=== PATIENT | female | born 1980 | race Caucasian/White ===

== ENCOUNTER 2017-03-10 11:13 | Emergency (ER) | payer OTHER ==
[~2017-03-10 11:13] MED LIST: DIVA500T2 PO; DIVA500T4 PO; HYDR-79 PO; HYDR1TAB12 PO; ONDA4TAB10 PO; OXYC-323 PO; SUMA100T3 PO
[2017-03-10 11:20] VITALS: BP 177/100
[2017-03-10] MEDS ORDERED: DEXAMETHASONE SOD PHOS 10 MG/ML VIAL IM ONE (12:30)
--- NOTE | 2017-03-10 13:15 | ED.ADGEN ---
Past History Past Medical History: Hypertension Past Surgical History: , Gastric Bypass, Tonsillectomy, Other Smoking: Cigarettes Alcohol Use: Heavy Drug Use: None Adult General HPI HPI Patient is a 37-year-old female presents emergency department complaining of bilateral low back pain. She denies any injury or trauma to the area. She denies any bowel or bladder dysfunction or saddle anesthesia. Patient has been using heat and ice for the pain but no other interventions. She has not seen her primary care physician. Review of Systems Review of Systems Constitutional: Denies fever or chills [] Eyes: Denies change in visual acuity, redness, or eye pain [] HENT: Denies nasal congestion or sore throat [] Respiratory: Denies cough or shortness of breath [] Cardiovascular: No additional information not addressed in HPI [] GI: Denies abdominal pain, nausea, vomiting, bloody stools or diarrhea [] : Denies dysuria or hematuria [] Musculoskeletal: Denies back pain or joint pain [] Integument: Denies rash or skin lesions [] Neurologic: Denies headache, focal weakness or sensory changes [] Endocrine: Denies polyuria or polydipsia [] Current Medications Current Medications Current Medications Medications (Trade) Dose Ordered Sig/Jocelyne Start Time Stop Time Status Last Admin Dose Admin Dexamethasone Sodium Phosphate (Decadron) 10 mg 1X ONCE 03/10/17 12:30 03/10/17 12:37 DC 03/10/17 12:30 10 MG Allergies Allergies Allergies Coded Allergies Type Severity Reaction Last Updated Verified No Known Drug Allergies 11/29/15 No Physical Exam Physical Exam Constitutional: Well developed, well nourished, no acute distress, non-toxic appearance. [] HENT: Normocephalic, atraumatic, bilateral external ears normal, oropharynx moist, no oral exudates, nose normal. [] Eyes: PERRLA, EOMI, conjunctiva normal, no discharge. [] Neck: Normal range of motion, no tenderness, supple, no stridor. [] Cardiovascular:Heart rate regular rhythm, no murmur [] Lungs & Thorax: Bilateral breath sounds clear to auscultation [] Abdomen: Bowel sounds normal, soft, no tenderness, no masses, no pulsatile masses. [] Skin: Warm, dry, no erythema, no rash. [] Back: Bilateral paralumbar tenderness palpation Extremities: No tenderness, no cyanosis, no clubbing, ROM intact, no edema. [] Neurologic: Alert and oriented X 3, normal motor function, normal sensory function, no focal deficits noted. [] Psychologic: Affect normal, judgement normal, mood normal. [] Current Patient Data Vital Signs Vital Signs Date Time Temp Pulse Resp B/P Pulse Ox O2 Delivery O2 Flow Rate FiO2 03/10/17 11:20 98.1 80 18 98 Room Air EKG EKG [] Radiology/Procedures Radiology/Procedures [] Course & Med Decision Making Course & Med Decision Making Pertinent Labs and Imaging studies reviewed. (See chart for details) Patient was instructed to use for naproxen as directed. We did give her dose of Decadron here. She will follow with her doctor next week and return emergency department sooner she develops new or worsening symptoms. [] Final Impression Final Impression Low back pain [] Problems: Dragon Disclaimer Dragon Disclaimer This electronic medical record was generated, in whole or in part, using a voice recognition dictation system. AMINTA AMARO MD Mar 10, 2017 13:15
== END 2017-03-10 12:52 | disposition home or self-care (01) ==
LOC: ER 11:13
DX: M54.5 Low back pain (principal); I10 Essential (primary) hypertension; F17.210 Nicotine dependence, cigarettes, uncomplicated; F10.10 Alcohol abuse, uncomplicated
CPT/HCPCS: 96372; 99283; J1100

== ENCOUNTER 2017-05-09 18:02 | Emergency (ER) | payer OTHER ==
[~2017-05-09] VITALS: Ht 160 cm; Wt 77.1 kg
[2017-05-09 18:13] VITALS: BP 149/103
--- NOTE | 2017-05-09 19:19 | PHYS DOC ---
General Chief Complaint: TOE PROBLEM Stated Complaint: TOE PROBLEM Time Seen by MD: 18:35 Source: patient Exam Limitations: no limitations Problems: History of Present Illness Initial Comments Patient is a 37-year-old female who comes to the ED complaining of left small toe pain. Patient states that yesterday she was walking at home and tripped over her son' s Nerf gun she then accidentally kicked a piece of furniture with her left small toe causing severe pain. She's had pain and swelling since that time and came for evaluation to see if she had dislocated the digit. She denies numbness tingling weakness or radiating symptoms. [id number] medications helps some however patient became concerned with the bruising and swelling today. 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 Onset: yesterday Severity: moderate Pain/Injury Location: left 5th toe Method of Injury: direct blow Modifying Factors: worse with jarring, worse with movement, improves with pain medication, improves with rest Allergies: Coded Allergies: No Known Drug Allergies (Unverified , 11/29/15) Past Medical History Medical History: hypertension Surgical History: appendectomy (), gastric bypass Social History Smoker: cigarettes Alcohol: none Drugs: none Review of Systems Constitutional: denies chills, denies fever Respiratory: denies cough, denies shortness of breath Cardiovascular: denies chest pain, denies palpitations Gastrointestinal: denies diarrhea, denies nausea, denies vomiting Musculoskeletal: see HPI Skin: see HPI Psychiatric/Neurological: see HPI Physical Exam General Appearance: WD/WN, no apparent distress Neck: non-tender, supple Cardiovascular/Respiratory: normal peripheral pulses, no respiratory distress Back: no CVA tenderness, no vertebral tenderness Feet: right foot non-tender, right foot normal inspection, right foot normal range of motion, right foot no evidence of injury, left foot other (fifth phalanx with swelling and ecchymosis approximately no palpable bony deformity or dislocation. Ligaments and tendons appear to be intact the extremity is neurovascularly intact there is no nailbed involvement.) Neurologic/Tendon: normal sensation, normal motor functions, normal tendon functions, responds to pain, no evidence tendon injury Psychiatric: alert, oriented x 3 Skin: warm/dry (left foot bruising as described above.) Orders, Labs, Meds Toes left: Acute fracture of the proximal fifth phalanx noted Postop shoe with some relief neurovascularly intact after placed in the shoe. Patient was encouraged to stop smoking. Departure Time of Disposition: 19:17 Disposition: 01 HOME, SELF-CARE Diagnosis: left 5th toe fracture Condition: GOOD Patient Instructions: Marc Taping of ToesKEHINDE - Routine Care for Injuries, [id number], Toe Fracture, [id number] Additional Instructions: KEHINDE see handout. Wear the postop shoe until cleared by your doctor. [id number] ibuprofen for baseline pain control. Prescription: [place] 5 mg quantity 15 Take medication with food to avoid nausea and vomiting. Follow-up at [place] this week for recheck and orthopedics referral. Return to the ED with new or changing symptoms REBA STEVE DO May 09, 2017 19:19
[2017-05-09] MEDS ORDERED: MORPHINE SULFATE 10 MG/ML SYRINGE. SQ ONE (19:45)
--- NOTE | 2017-05-10 07:54 | RAD ---
EXAM: Left 5th toe 3 views. HISTORY: Left 5th toe pain after injury. COMPARISON: None. FINDINGS: There is a nondisplaced transverse fracture of the proximal metaphysis of the 5th proximal phalanx. 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 Other joint spaces and alignment appear maintained. IMPRESSION: 1. Nondisplaced fracture of the 5th proximal phalangeal metaphysis.
== END 2017-05-09 19:40 | disposition home or self-care (01) ==
LOC: ER 18:02
DX: S92.512A Displaced fracture of proximal phalanx of left lesser toe(s), initial encounter for closed fracture (principal); I10 Essential (primary) hypertension; F17.210 Nicotine dependence, cigarettes, uncomplicated; Z98.84 Bariatric surgery status; W22.03XA Walked into furniture, initial encounter; Y93.01 Activity, walking, marching and hiking; Y99.8 Other external cause status; Y92.89 Other specified places as the place of occurrence of the external cause
CPT/HCPCS: 73660; 96372; 99284; J2270

== ENCOUNTER 2017-07-25 13:43 | Emergency (ER) | payer OTHER ==
[2017-07-25 14:20] LABS: BASO % 0 % (0-3); EOS % 0 % (0-3); HEMATOCRIT 41.8 % (36.0-47.0); HEMOGLOBIN 13.6 g/dL (12.0-15.5); LYMPH # 3.9 x10^3/uL (1.0-4.8); LYMPH % 49 % (24-48); MEAN CORPUSCULAR HEMOGLOBIN 31 pg (25-35); MEAN CORPUSCULAR HGB CONC 33 g/dL (31-37); MEAN CORPUSCULAR VOLUME 96 fL (79-100); MONO # 0.7 x10^3/uL (0.0-1.1); MONO % 8 % (0-9); NEUT # 3.4 x10^3uL (1.8-7.7); NEUT % 42 % (31-73); PLATELET COUNT 277 x10^3/uL (140-400); RED BLOOD COUNT 4.35 x10^6/uL (3.50-5.40)
[2017-07-25 14:33] LABS: ALBUMIN 3.6 g/dL (3.4-5.0); CALCIUM 8.4 mg/dL (8.5-10.1); CREATININE 0.8 mg/dL (0.6-1.0); GFR 80.7; POTASSIUM 3.4 mmol/L (3.5-5.1); TOTAL BILIRUBIN 1.7 mg/dL (0.2-1.0); TOTAL PROTEIN 7.1 g/dL (6.4-8.2)
[2017-07-25] MEDS: FAMOTIDINE 20 MG/2 ML VIAL IVP ONE (14:47)
[2017-07-25] MEDS: ONDANSETRON PF 4 MG/2 ML VIAL. IV ONE (14:47)
[2017-07-25] MEDS: IV NORMAL SALINE 1,000ML 1,000 ML IV ONE (14:47)
--- NOTE | 2017-07-25 14:48 | ED.ADGEN ---
Past History Past Medical History: Hypertension Past Surgical History: , Gastric Bypass Smoking: Cigarettes Alcohol Use: None Drug Use: None Adult General Chief Complaint Chief Complaint Acute alcohol intoxication HPI HPI Patient is a 37 year-old female with history of gastric bypass. Presents with alcohol intoxication after drinking an unknown quantity of alcohol prior to ED arrival. Patient reports abdominal pain nausea vomiting for the past 3 days which she is been treating with alcohol. Patient states she drank heavily this morning. She reports muscle aches and cramping and hands wrists and his tachypneic and hyperventilating on ED arrival. Denies prescription or illicit drug use. No other acute symptoms or complaints. History is limited due to the patient's presentation. Review of Systems Review of Systems ROS as per HPI. Current Medications Current Medications Current Medications Medications (Trade) Dose Ordered Sig/Jocelyne Start Time Stop Time Status Last Admin Dose Admin Famotidine (Pepcid) 20 mg 1X ONCE 07/25/17 14:15 07/25/17 14:16 DC Ondansetron HCl (Zofran) 4 mg 1X ONCE 07/25/17 14:15 07/25/17 14:16 DC Sodium Chloride 1,000 ml @ 1,000 mls/hr 1X ONCE 07/25/17 14:30 07/25/17 15:29 Allergies Allergies Allergies Coded Allergies Type Severity Reaction Last Updated Verified No Known Drug Allergies 11/29/15 No Physical Exam Physical Exam Constitutional: Well developed, well nourished, somnolent, smells of ETOH [] HENT: Normocephalic, atraumatic, bilateral external ears normal, oropharynx moist, no oral exudates, nose normal. [] Eyes: PERRLA, EOMI, conjunctivae injected. [] Neck: Normal range of motion, no tenderness, supple, no stridor. [] Cardiovascular:Heart rate regular rhythm, no murmur [] Lungs & Thorax: Bilateral breath sounds clear to auscultation [] Abdomen: Bowel sounds normal, soft, no tenderness [] Skin: Warm, dry, no erythema, no rash. [] Back: No tenderness, no CVA tenderness. [] Extremities: No tenderness, no cyanosis, no clubbing, ROM intact, no edema. [] Neurologic: Alert and oriented X 3, normal motor function, normal sensory function, no focal deficits noted. [] Psychologic: Affect, anxious [] Current Patient Data Lab Results Laboratory Tests Test 07/25/17 14:02 White Blood Count 8.0 x10^3/uL (4.0-11.0) Red Blood Count 4.35 x10^6/uL (3.50-5.40) Hemoglobin 13.6 g/dL (12.0-15.5) Hematocrit 41.8 % (36.0-47.0) Mean Corpuscular Volume 96 fL (79-100) Mean Corpuscular Hemoglobin 31 pg (25-35) Mean Corpuscular Hemoglobin Concent 33 g/dL (31-37) Red Cell Distribution Width 17.0 % (11.5-14.5) H Platelet Count 277 x10^3/uL (140-400) Neutrophils (%) (Auto) 42 % (31-73) Lymphocytes (%) (Auto) 49 % (24-48) H Monocytes (%) (Auto) 8 % (0-9) Eosinophils (%) (Auto) 0 % (0-3) Basophils (%) (Auto) 0 % (0-3) Neutrophils # (Auto) 3.4 x10^3uL (1.8-7.7) Lymphocytes # (Auto) 3.9 x10^3/uL (1.0-4.8) Monocytes # (Auto) 0.7 x10^3/uL (0.0-1.1) Eosinophils # (Auto) 0.0 x10^3/uL (0.0-0.7) Basophils # (Auto) 0.0 x10^3/uL (0.0-0.2) Sodium Level 140 mmol/L (136-145) Potassium Level 3.4 mmol/L (3.5-5.1) L Chloride Level 101 mmol/L (98-107) Carbon Dioxide Level 19 mmol/L (21-32) L Anion Gap 20 (6-14) H Blood Urea Nitrogen 5 mg/dL (7-20) L Creatinine 0.8 mg/dL (0.6-1.0) Estimated GFR (Cockcroft-Gault) 80.7 BUN/Creatinine Ratio 6 (6-20) Glucose Level 79 mg/dL (70-99) Calcium Level 8.4 mg/dL (8.5-10.1) L Total Bilirubin 1.7 mg/dL (0.2-1.0) H Aspartate Amino Transferase (AST) 372 U/L (15-37) H Alanine Aminotransferase (ALT) 122 U/L (14-59) H Alkaline Phosphatase 127 U/L (46-116) H Total Protein 7.1 g/dL (6.4-8.2) Albumin 3.6 g/dL (3.4-5.0) Albumin/Globulin Ratio 1.0 (1.0-1.7) EKG EKG [] Radiology/Procedures Radiology/Procedures [] Course & Med Decision Making Course & Med Decision Making Pertinent Labs and Imaging studies reviewed. (See chart for details) [Acute alcohol intoxication. Patient given fluids, basic labs checked. Patient' s airway is intact. Patient be monitored in the ED until she is clinically more sober. Patient did provide contact information for transportation upon release from the ED . ] Final Impression Final Impression [1. Acute alcohol intoxication] Problems: Dragon Disclaimer Dragon Disclaimer This electronic medical record was generated, in whole or in part, using a voice recognition dictation system. YING DÍAZ DO Jul 25, 2017 14:48
[2017-07-25 15:50] VITALS: BP 139/88
== END 2017-07-25 16:09 | disposition home or self-care (01) ==
LOC: ER 13:43
DX: F10.129 Alcohol abuse with intoxication, unspecified (principal); I10 Essential (primary) hypertension; F17.210 Nicotine dependence, cigarettes, uncomplicated; Z98.84 Bariatric surgery status
CPT/HCPCS: 36415; 80053; 85025; 96374; 96375; 99284; J2405; S0028; J7030

== ENCOUNTER 2017-12-25 14:00 | Emergency (ER) | payer OTHER ==
[~2017-12-25] VITALS: Ht 160 cm; Wt 77.1 kg
[2017-12-25 14:11] VITALS: BP 139/88
[2017-12-25 15:41] LABS: U PREG PATIENT NEGATIVE (NEG)
--- NOTE | 2017-12-25 15:41 | RAD ---
Indication: Right flank pain. Technique: Axial images and coronal and sagittal reformatted images are provided. No comparison is available. One or more of the following individualized dose reduction techniques were utilized for this examination: 1. Automated exposure control 2. Adjustment of the mA and/or kV according to patient size 3. Use of iterative reconstruction technique Findings: There is atelectasis in the lung bases. There is no pleural effusion. Heart is not enlarged. Solid organ evaluation is limited without contrast. There is fatty infiltration of the liver. Gallbladder is unremarkable. Spleen is not enlarged. Pancreas and adrenals are unremarkable. Right ureter is dilated. There is an obstructing calculus in the right ureter about a centimeter from the UVJ measuring 6 mm. Additional calcified phleboliths are noted along the right ureter course. Nonobstructing 3 mm left renal calculus is noted. Left ureter is normal caliber. Aorta is normal caliber. There are postsurgical changes in the stomach. There is no dilated small bowel loop or air-fluid level. There is a moderate amount of stool in the colon. Appendix is not definitely visualized, there are no secondary findings of appendicitis. There is no bladder calculus. There are calcified phleboliths. Probable cyst in the left ovary measures 3 cm, with some debris layering dependently. There is no free pelvic fluid. There is an old L1 compression fracture. Impression: 1. 6 mm obstructing calculus on the right just proximal to the ureterovesical junction. 2. Nonobstructing left renal calculus. 3. Fatty infiltration of the liver.
[2017-12-25 15:46] LABS: CLARITY,URINE CLEAR; COLOR,URINE YELLOW
[2017-12-25 15:47] LABS: BILIRUBIN,URINE NEG (NEG); GLUCOSE,URINE NEG (NEG); NITRITE,URINE NEG (NEG); UROBILINOGEN,URINE 1 mg/dL (0.2 mg/dL)
[2017-12-25] MEDS ORDERED: TAMS0.4C97 PO (16:24)
[2017-12-25] MEDS ORDERED: ONDA4TAB10 SL (16:24)
[2017-12-25] MEDS ORDERED: TRAM-48 PO (16:24)
[2017-12-25] MEDS ORDERED: IBUP800T19 PO (16:24)
--- NOTE | 2017-12-25 16:24 | PHYS DOC ---
Past History Past Medical History: Hypertension Past Surgical History: Gastric Bypass, Tubal ligation Smoking: Cigarettes Alcohol Use: Heavy Drug Use: None Adult General Chief Complaint Chief Complaint: BACK PAIN OR INJURY HPI HPI 37-year-old female patient with history of kidney stone complaining of right flank and back pain since this morning as a constant and sharp pain with radiation to lower back and pelvic area. Patient complaining of nausea without vomiting and urinary symptom and fever and chills. 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 She denies . Review of Systems Review of Systems Constitutional: Denies fever or chills [] Eyes: Denies change in visual acuity, redness, or eye pain [] HENT: Denies nasal congestion or sore throat [] Respiratory: Denies cough or shortness of breath [] Cardiovascular: No additional information not addressed in HPI [] GI: Denies abdominal pain, nausea, vomiting, bloody stools or diarrhea [] : Denies dysuria or hematuria, reports flank pain Musculoskeletal: Denies back pain or joint pain [] Integument: Denies rash or skin lesions [] Neurologic: Denies headache, focal weakness or sensory changes [] Endocrine: Denies polyuria or polydipsia [] All other systems were reviewed and found to be within normal limits, except as documented in this note. Current Medications Current Medications Current Medications Medications (Trade) Dose Ordered Sig/Jocelyne Start Time Stop Time Status Last Admin Dose Admin Ibuprofen (Motrin) 800 mg 1X ONCE 12/25/17 16:30 12/25/17 16:31 Tamsulosin HCl (Flomax) 0.4 mg 1X ONCE 12/25/17 16:30 12/25/17 16:31 Allergies Allergies Allergies Coded Allergies Type Severity Reaction Last Updated Verified No Known Drug Allergies 11/29/15 No Physical Exam Physical Exam Constitutional: Well nourished, no acute distress, non-toxic appearance, sleeping most the time. [] HENT: Normocephalic, atraumatic, bilateral external ears normal, oropharynx moist, no oral exudates, nose normal. [] Eyes: PERRLA, EOMI, conjunctiva normal, no discharge. [] Neck: Normal range of motion, no tenderness, supple, no stridor. [] Cardiovascular:Heart rate regular rhythm, no murmur [] Lungs & Thorax: Bilateral breath sounds clear to auscultation [] Abdomen: Bowel sounds normal, soft, no tenderness, no masses, no pulsatile masses. [] Skin: Warm, dry, no erythema, no rash. [] Back: No tenderness, mild right CVA tenderness[] Extremities: No tenderness, no cyanosis, no clubbing, ROM intact, no edema. [] Neurologic: Alert and oriented X 3, normal motor function, normal sensory function, no focal deficits noted. [] Psychologic: Affect normal, judgement normal, mood normal. [] Current Patient Data Vital Signs Vital Signs Date Time Temp Pulse Resp B/P (MAP) Pulse Ox O2 Delivery O2 Flow Rate FiO2 12/25/17 14:11 98.4 107 16 98 Room Air Lab Results Laboratory Tests Test 12/25/17 14:32 12/25/17 14:40 Urine Test Negative (NEG) Urine Collection Type Unknown Urine Color Yellow Urine Clarity Clear Urine pH 5.5 Urine Specific [place] 1.010 Urine Protein Neg (NEG-TRACE) Urine Glucose (UA) Neg mg/dL (NEG) Urine Ketones (Stick) Neg mg/dL (NEG) Urine Blood Mod (NEG) Urine Nitrite Neg (NEG) Urine Bilirubin Neg (NEG) Urine Urobilinogen Dipstick 1 mg/dL (0.2 mg/dL) Urine Leukocyte Esterase Neg (NEG) EKG EKG [] Radiology/Procedures Radiology/Procedures [] [address] [place] [address] IMAGING REPORT Signed 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 PHYSICIAN: JOSÉ MIGUEL CAMACHO MD REASON: right flank pain PROCEDURE: CT ABDOMEN PELVIS WO CONTRAST Indication: Right flank pain. Technique: Axial images and coronal and sagittal reformatted images are provided. No comparison is available. One or more of the following individualized dose reduction techniques were utilized for this examination: 1. Automated exposure control 2. Adjustment of the mA and/or kV according to patient size 3. Use of iterative reconstruction technique Findings: There is atelectasis in the lung bases. There is no pleural effusion. Heart is not enlarged. Solid organ evaluation is limited without contrast. There is fatty infiltration of the liver. Gallbladder is unremarkable. Spleen is not enlarged. Pancreas and adrenals are unremarkable. Right ureter is dilated. There is an obstructing calculus in the right ureter about a centimeter from the UVJ measuring 6 mm. Additional calcified phleboliths are noted along the right ureter course. Nonobstructing 3 mm left renal calculus is noted. Left ureter is normal caliber. Aorta is normal caliber. There are postsurgical changes in the stomach. There is no dilated small bowel loop or air-fluid level. There is a moderate amount of stool in the colon. Appendix is not definitely visualized, there are no secondary findings of appendicitis. There is no bladder calculus. There are calcified phleboliths. Probable cyst in the left ovary measures 3 cm, with some debris layering dependently. There is no free pelvic fluid. There is an old L1 compression fracture. Impression: 1. 6 mm obstructing calculus on the right just proximal to the ureterovesical junction. 2. Nonobstructing left renal calculus. 3. Fatty infiltration of the liver. DICTATED AND SIGNED BY: KATHY ORDONEZ MD DATE: 12/25/17 9164 CC: JOSÉ MIGUEL CAMACHO MD; HALLEY STEWART DO, MPH ~ Course & Med Decision Making Course & Med Decision Making Pertinent Labs and Imaging studies reviewed. (See chart for details) Impression of patient in ER showed 37-year-old male patient with complaining of right flank pain since this morning as a constant pain. Patient was sleeping most the time and had history of alcohol abuse and detox facility. Patient had hematuria in her urine and CT of abdomen and pelvis shows 6 mm right ureteral stone. Patient did not have vomiting or discomfort while she was in ER. Patient treated with Zithromax and ibuprofen and instructed to follow up with urologist in one or 2 days. Dragon Disclaimer Dragon Disclaimer This electronic medical record was generated, in whole or in part, using a voice recognition dictation system. Departure Departure: Impression: Primary Impression: Renal colic on right side Additional Impressions: Ureterolithiasis Tobacco abuse Tobacco abuse counseling Nephrolithiasis Disposition: HOME, SELF-CARE (At 1621) Condition: IMPROVED Referrals: HALLEY STEWART DO, MPH (PCP) Patient Instructions: Diet for Kidney Stones, Kidney Stones, Smoking Cessation , Smoking Cessation, Tips For Success Additional Instructions: Follow-up with your urologist in one or 2 days Drink plenty of liquids Strain all of your urine Return to emergency room if not getting better Scripts Ibuprofen (IBUPROFEN) 800 Mg Tablet 1 TAB PO TID, #30 TAB Prov: JOSÉ MIGUEL CAMACHO MD 12/25/17 Tramadol Hcl (ULTRAM) 50 Mg Tablet 50 MG PO PRN Q6HRS Y for PAIN, #14 TAB Prov: JOSÉ MIGUEL CAMACHO MD 12/25/17 Ondansetron (ZOFRAN ODT) 4 Mg Tab.rapdis 1 TAB SL Q8HRS, #15 TAB Prov: JOSÉ MIGUEL CAMACHO MD 12/25/17 Tamsulosin Hcl (FLOMAX) 0.4 Mg Cap.er.24h 1 CAP PO DAILY, #30 CAP 11 Refills Prov: JOSÉ MIGUEL CAMACHO MD 12/25/17 Problem Qualifiers JOSÉ MIGUEL CAMACHO MD Dec 25, 2017 16:24
[2017-12-25] MEDS ORDERED: IBUPROFEN 800 MG TABLET. PO ONE (16:30)
[2017-12-25] MEDS ORDERED: TAMSULOSIN 0.4 MG CAP.ER.24H. PO ONE (16:30)
== END 2017-12-25 16:39 | disposition home or self-care (01) ==
LOC: ER 14:00
DX: N20.2 Calculus of kidney with calculus of ureter (principal); F17.210 Nicotine dependence, cigarettes, uncomplicated; I10 Essential (primary) hypertension; F10.20 Alcohol dependence, uncomplicated; Z87.442 Personal history of urinary calculi; Z71.6 Tobacco abuse counseling; Z98.51 Tubal ligation status; Z98.84 Bariatric surgery status
CPT/HCPCS: 74176; 81003; 81025; 99285-25

== ENCOUNTER 2018-09-11 18:02 | Emergency (ER) | payer OTHER ==
[~2018-09-11] VITALS: Ht 165.1 cm; Wt 86.2 kg
[~2018-09-11 18:02] MED LIST changes: +IBUP800T19 PO; +ONDA4TAB10 SL; +TAMS0.4C97 PO; +TRAM-48 PO
--- NOTE | 2018-09-11 18:37 | PHYS DOC ---
Past History Past Medical History: Hypertension Past Surgical History: , Other Smoking: Cigarettes Alcohol Use: None Drug Use: None Adult General Chief Complaint Chief Complaint: FLANK PAIN HPI HPI 38-year-old female presents with right flank pain. Patient states she was feeling well today around noon when she began have a twinge of mild pain in the right flank. This pain has increased in intensity and is now moderate as a deep cramp. Patient denies abdominal pain, nausea, vomiting, fever, chills. Patient has a history of kidney stones. She has never had to have one removed with lithotripsy done. She denies increased urinary frequency or dysuria or hematuria. She denies any trauma or overuse injury. Review of Systems Review of Systems Constitutional: Denies fever or chills [] Eyes: Denies change in visual acuity, redness, or eye pain [] HENT: Denies nasal congestion or sore throat [] Respiratory: Denies cough or shortness of breath [] Cardiovascular: No additional information not addressed in HPI [] GI: Denies abdominal pain, nausea, vomiting, bloody stools or diarrhea [] : Denies dysuria or hematuria [] Musculoskeletal: Right flank pain[] Integument: Denies rash or skin lesions [] Neurologic: Denies headache, focal weakness or sensory changes [] Endocrine: Denies polyuria or polydipsia [] All other systems were reviewed and found to be within normal limits, except as documented in this note. Allergies Allergies Allergies Coded Allergies Type Severity Reaction Last Updated Verified No Known Drug Allergies 11/29/15 No Physical Exam Physical Exam Constitutional: Well developed, well nourished, no acute distress, non-toxic appearance. Appears uncomfortable[] HENT: Normocephalic, atraumatic, bilateral external ears normal, oropharynx moist, no oral exudates, nose normal. [] Eyes: PERRLA, EOMI, conjunctiva normal, no discharge. [] Neck: Normal range of motion, no tenderness, supple, no stridor. [] Cardiovascular:Heart rate regular rhythm, no murmur [] Lungs & Thorax: Bilateral breath sounds clear to auscultation [] Abdomen: Bowel sounds normal, soft, no tenderness, no masses, no pulsatile masses. [] Skin: Warm, dry, no erythema, no rash. [] Back: No tenderness. Right sided mild CVA tenderness. [] Extremities: No tenderness, no cyanosis, no clubbing, ROM intact, no edema. [] Neurologic: Alert and oriented X 3, normal motor function, normal sensory function, no focal deficits noted. [] Psychologic: Affect normal, judgement normal, mood normal. [] Current Patient Data Vital Signs Vital Signs Date Time Temp Pulse Resp B/P (MAP) Pulse Ox O2 Delivery O2 Flow Rate FiO2 09/11/18 18:10 99.0 129 18 99 Room Air EKG EKG [] Radiology/Procedures Radiology/Procedures [] Impressions: CT abdomen pelvis without intravenous contrast History: Right flank pain. Renal stones. Comparison: CT abdomen pelvis December 25, 2017 Technique: CT of the abdomen and pelvis was performed without intravenous or oral contrast. Exposure: One or more of the following individualized dose reduction techniques were utilized for this examination: 1. Automated exposure control 2. Adjustment of the mA and/or kV according to patient size 3. Use of iterative reconstruction technique Findings: Evaluation of solid organs is limited by lack of intravenous contrast. Evaluation of enteric structures may be limited by lack of oral contrast. Liver, spleen, pancreas, gallbladder, and bilateral adrenal glands are unremarkable. Bilateral kidneys and ureters are free stone or obstruction. Postsurgical changes are seen involving the stomach, compatible with bariatric surgery. No bowel obstruction or inflammation is identified. No free air or significant free fluid is seen in the abdomen or pelvis. Urinary bladder is unremarkable. Gas seen within the vaginal vault. Uterus and adnexa have unremarkable CT appearance. Appendix is not confidently identified, but no inflammatory change is seen adjacent to cecum. There is chronic moderate wedging at L1. Schmorl's nodes are seen at T11-T12. Impression: No acute abnormality identified in the abdomen or pelvis. Electronically signed by: Jules Egan MD (09/11/2018 7:08 PM) [facility] DICTATED AND SIGNED BY: JULES EGAN MD DATE: 09/11/181903 CC: YING SORIANO DO; HALLEY STEWART DO, MPH ~ Course & Med Decision Making Course & Med Decision Making Pertinent Labs and Imaging studies reviewed. (See chart for details) The patient's CT scan is negative for kidney stone. Her urine is unremarkable. Her labs are unremarkable. The patient's CT scan did show some retained stool at the site of discomfort. I have advised that she consider a stool softener to see this helps clear up her pain. She is stable for discharge at this time. [] [place] Disclaimer [place] Disclaimer This electronic medical record was generated, in whole or in part, using a voice recognition dictation system. Departure Departure: Referrals: HALLEY STEWART DO, MPH (PCP) Scripts Hydrocodone Bit/Acetaminophen (NORCO 5-325 TABLET) 1 Each Tablet 1 TAB PO PRN Q6HRS PRN for PAIN, #10 TAB 0 Refills Prov: YING SORIANO DO 09/11/18 YING SORIANO DO Sep 11, 2018 18:37
[2018-09-11] MEDS ORDERED: KETOROLAC 30 MG/ML VIAL. IV ONE (18:45)
[2018-09-11] MEDS ORDERED: IV NORMAL SALINE 1,000ML 1,000 ML IV ONE (18:45)
--- NOTE | 2018-09-11 19:12 | RAD ---
CT abdomen pelvis without intravenous contrast History: Right flank pain. Renal stones. Comparison: CT abdomen pelvis December 25, 2017 Technique: CT of the abdomen and pelvis was performed without intravenous or oral contrast. Exposure: One or more of the following individualized dose reduction techniques were utilized for this examination: 1. Automated exposure control 2. Adjustment of the mA and/or kV according to patient size 3. Use of iterative reconstruction technique Findings: Evaluation of solid organs is limited by lack of intravenous contrast. Evaluation of enteric structures may be limited by lack of oral contrast. Liver, spleen, pancreas, gallbladder, and bilateral adrenal glands are unremarkable. Bilateral kidneys and ureters are free stone or obstruction. Postsurgical changes are seen involving the stomach, compatible with bariatric surgery. No bowel obstruction or inflammation is identified. No free air or significant free fluid is seen in the abdomen or pelvis. Urinary bladder is unremarkable. Gas seen within the vaginal vault. Uterus and adnexa have unremarkable CT appearance. Appendix is not confidently identified, but no inflammatory change is seen adjacent to cecum. There is chronic moderate wedging at L1. Schmorl's nodes are seen at T11-T12. Impression: No acute abnormality identified in the abdomen or pelvis. Electronically signed by: Jules Egan MD (09/11/2018 7:08 PM) [facility]
[2018-09-11 19:14] LABS: BASO % 0 % (0-3); EOS # 0.1 x10^3/uL (0.0-0.7); EOS % 1 % (0-3); HEMATOCRIT 41.1 % (36.0-47.0); HEMOGLOBIN 14.1 g/dL (12.0-15.5); LYMPH # 1.6 x10^3/uL (1.0-4.8); LYMPH % 24 % (24-48); MEAN CORPUSCULAR HEMOGLOBIN 32 pg (25-35); MEAN CORPUSCULAR HGB CONC 34 g/dL (31-37); MEAN CORPUSCULAR VOLUME 93 fL (79-100); MONO # 0.5 x10^3/uL (0.0-1.1); MONO % 7 % (0-9); NEUT # 4.7 x10^3uL (1.8-7.7); NEUT % 68 % (31-73); PLATELET COUNT 313 x10^3/uL (140-400); RED BLOOD COUNT 4.44 x10^6/uL (3.50-5.40); RED CELL DISTRIBUTION WIDTH 14.1 % (11.5-14.5); WHITE BLOOD COUNT 6.9 x10^3/uL (4.0-11.0)
[2018-09-11 19:15] LABS: BACTERIA,URINE FEW /HPF (0-FEW); BILIRUBIN,URINE NEG (NEG); CLARITY,URINE HAZY; COLOR,URINE YELLOW; GLUCOSE,URINE NEG (NEG); NITRITE,URINE NEG (NEG); RBC,URINE 0 /HPF (0-2); SQUAMOUS EPITHELIAL CELL,UR FEW /LPF; UROBILINOGEN,URINE 1 mg/dL (0.2 mg/dL)
[2018-09-11 19:26] LABS: ALBUMIN 3.9 g/dL (3.4-5.0); CALCIUM 8.5 mg/dL (8.5-10.1); CREATININE 0.6 mg/dL (0.6-1.0); GFR 111.9; TOTAL BILIRUBIN 0.3 mg/dL (0.2-1.0); TOTAL PROTEIN 7.7 g/dL (6.4-8.2)
[2018-09-11] MEDS ORDERED: HYDR-971 PO (20:28)
[2018-09-11 20:40] VITALS: BP 157/107
== END 2018-09-11 20:40 | disposition home or self-care (01) ==
LOC: ER 18:02
DX: R10.9 Unspecified abdominal pain (principal); I10 Essential (primary) hypertension; F17.210 Nicotine dependence, cigarettes, uncomplicated
CPT/HCPCS: 36415; 74176; 80053; 81001; 85025; 87086; 96374; 99285; J1885; J7030

== ENCOUNTER 2018-10-02 09:45 | Emergency (ER) | payer OTHER ==
[~2018-10-02] VITALS: Ht 162.6 cm; Wt 88.5 kg
[~2018-10-02 09:45] MED LIST changes: +HYDR-971 PO
--- NOTE | 2018-10-02 10:52 | PHYS DOC ---
Past History Past Medical History: Hypertension Past Surgical History: , Other Smoking: Cigarettes Alcohol Use: None Drug Use: None Adult General Chief Complaint Chief Complaint: HEADACHE AND EARACHE HPI HPI Patient is a 38 year old female who brought in by EMS because of headache and left ear pain. Patient states she had URI symptoms for several days with nasal congestion and sore throat with blowing her nose frequently and for the last 3 days has had left ear pain as a pressure pain with decrease of hearing. Patient rated her pain 10 over 10 and states she had headache and dizziness since this morning and didn't feel comfortable to drive to the hospital and called 911. Patient complaining of generalized weakness without neck pain, fever and chills , sick contact, vomiting. Patient complaining of chronic diarrhea like her usual after her gastric bypass surgery. Review of Systems Review of Systems Constitutional: Denies fever or chills [] Eyes: Denies change in visual acuity, redness, or eye pain [] HENT: Reports nasal congestion, sore throat and earache Respiratory: Reports dry cough cough, denies shortness of breath [] Cardiovascular: No additional information not addressed in HPI [] GI: Denies abdominal pain, nausea, vomiting, bloody stools or diarrhea [] : Denies dysuria or hematuria [] Musculoskeletal: Denies back pain or joint pain [] Integument: Denies rash or skin lesions [] Neurologic: Reports headache, denies focal weakness or sensory changes [] Endocrine: Denies polyuria or polydipsia [] All other systems were reviewed and found to be within normal limits, except as documented in this note. Allergies Allergies Allergies Coded Allergies Type Severity Reaction Last Updated Verified No Known Drug Allergies 11/29/15 No Physical Exam Physical Exam Constitutional: Well nourished, mild distress, non-toxic appearance. [] HENT: Normocephalic, atraumatic, left tympanic membrane and ear canal erythema and tenderness, oropharynx moist, no oral exudates, nose congestion.[] Eyes: PERRLA, EOMI, conjunctiva normal, no discharge. [] Neck: Normal range of motion, no tenderness, supple, no stridor. [] Cardiovascular:Heart rate regular rhythm, no murmur [] Lungs & Thorax: Bilateral breath sounds clear to auscultation [] Abdomen: Bowel sounds normal, soft, no tenderness, no masses, no pulsatile masses. [] Skin: Warm, dry, no erythema, no rash. [] Back: No tenderness, no CVA tenderness. [] Extremities: No tenderness, no cyanosis, no clubbing, ROM intact, no edema. [] Neurologic: Alert and oriented X 3, normal motor function, normal sensory function, no focal deficits noted. [] Psychologic: Affect anxious, judgement normal, mood normal. [] Current Patient Data Vital Signs Vital Signs Date Time Temp Pulse Resp B/P (MAP) Pulse Ox O2 Delivery O2 Flow Rate FiO2 10/02/18 09:55 97.8 84 16 175/104 127 99 Room Air EKG EKG [] Radiology/Procedures Radiology/Procedures [address] [address] IMAGING REPORT Signed PATIENT: OSCAR BUTLER ACCOUNT: [id number] : 1980 LOCATION: ER AGE: 38 SEX: F EXAM STATUS: PRE ER ORD. PHYSICIAN: JOSÉ MIGUEL CAMACHO MD REASON: headache PROCEDURE: CT HEAD WO CONTRAST CT HEAD WO CONTRAST dated 10/02/2018 10:31 AM Indication: Headache.HEADACHE. Comparison: No comparison is available. Technique: Contiguous axial imaging the head was performed from skull base to vertex. One or more of the following individualized dose reduction techniques were utilized for this examination: 1. Automated exposure control 2. Adjustment of the mA and/or kV according to patient size 3. Use of iterative reconstruction technique Findings: Ventricles and sulci are within normal limits for age. No midline shift or mass effect. Brain parenchyma is of normal attenuation. No hemorrhage or extra axial collection. Posterior fossa and brainstem unremarkable. Visualized paranasal sinuses and mastoid air cells are clear. No apparent calvarial abnormality. IMPRESSION: No evidence of acute intracranial abnormality. Electronically signed by: Jules Chauhan MD (10/02/2018 10:49 AM) [facility] DICTATED AND SIGNED BY: JULES CHAUHAN MD DATE: 10/02/18 1048 CC: JOSÉ MIGUEL CAMACHO MD; HALLEY STEWART DO, MPH ~ Course & Med Decision Making Course & Med Decision Making Pertinent Imaging studies reviewed. (See chart for details) discharge: I've spoken with the patient and/or caregivers. I've explained the patient's condition, diagnosis and treatment plan based on information available to me at this time. I've answered the patient's and/or caregivers questions and addressed any concerns. The patient and/or caregivers have a good understanding the patient's diagnosis, condition and treatment plan as can be expected at this point. Vital signs have been stabilized. The patient's condition is stable for discharge from the emergency department. The patient will pursue further outpatient evaluation with her primary care provider or other designated consulting physician as outlined in the discharge instructions. Patient and/or caregivers are agreeable to this plan of care and follow-up instructions have been explained in detail. The patient and/or caregivers have received these instructions in written format and expressed understanding of these discharge instructions. The patient and her caregivers are aware that if any significant change in condition or worsening of symptoms should prompt him to immediately return to this of the closest emergency department. If an emergent department is not readily available I would encourage him to call 911. [place] Disclaimer Dragon Disclaimer This electronic medical record was generated, in whole or in part, using a voice recognition dictation system. Departure Departure: Impression: Primary Impression: Acute left otitis media Additional Impressions: Headache Upper respiratory infection Tobacco abuse Tobacco abuse counseling Disposition: HOME, SELF-CARE (at 11:15) Condition: IMPROVED Referrals: HALLEY STEWART DO, MPH (PCP) Patient Instructions: General Headache Without Cause, Otitis Media, Adult, Smoking Cessation, Smoking Cessation, Tips For Success, Upper Respiratory Infection, Adult Additional Instructions: Drink plenty of liquids Follow-up with your primary care physician in 3-5 days Return to ER if not getting better Scripts Amoxicillin/Potassium Clav (AUGMENTIN ES-600 SUSPENSION) 600 Mg/5 Ml Susp.recon 7 ML PO BID for infection, #140 ML Prov: JOSÉ MIGUEL CAMACHO MD 10/02/18 Ondansetron (ZOFRAN ODT) 4 Mg Tab.rapdis 1 TAB SL Q8HRS PRN for nausea and vomiting, #15 TAB Prov: JOSÉ MIGUEL CAMACHO MD 10/02/18 Hydrocodone/Chlorphen P-Stirex (Tussionex Pennkinetic Susp) 115 Ml Sparkle.er.12h 5 ML PO BID for cough and congestion, #60 ML Prov: JOSÉ MIGUEL CAMACHO MD 10/02/18 Problem Qualifiers JOSÉ MIGUEL CAMACHO MD Oct 02, 2018 10:52
[2018-10-02] MEDS ORDERED: cefTRIAXone IM 1 GM VIAL IM ONE (10:55)
[2018-10-02] MEDS ORDERED: KETOROLAC 60 MG/2 ML VIAL. IM ONE (10:55)
[2018-10-02] MEDS ORDERED: AMOX1TAB61 PO (11:18)
[2018-10-02] MEDS ORDERED: HYDR115S2 PO (11:18)
[2018-10-02 11:28] VITALS: BP 167/111
[2018-10-02] MEDS ORDERED: HYDROcodone/APAP 5/325MG 1 TAB TABLET PO ONE (11:30)
[2018-10-02] MEDS ORDERED: ONDA4TAB10 SL (12:00)
[2018-10-02] MEDS ORDERED: AMOX600S19 PO (12:00)
[2018-10-02] MEDS ORDERED: ONDANSETRON ODT 4 MG TAB.RAPDIS PO ONE (12:00)
== END 2018-10-02 11:28 | disposition home or self-care (01) ==
LOC: ER 09:45
DX: H66.92 Otitis media, unspecified, left ear (principal); R51 Headache; I10 Essential (primary) hypertension; F17.210 Nicotine dependence, cigarettes, uncomplicated; Z71.6 Tobacco abuse counseling
CPT/HCPCS: 70450; 96372; 99284; J0696; J1885; Q0162

== ENCOUNTER 2019-12-26 12:13 | Emergency (ER) | payer OTHER ==
[~2019-12-26] VITALS: Ht 162.6 cm; Wt 88.5 kg
[~2019-12-26 12:13] MED LIST changes: +AMOX1TAB61 PO; +AMOX600S19 PO; +HYDR-1179 PO; +HYDR-3165 PO; -HYDR-79 PO; -HYDR-971 PO; +HYDR115S2 PO; -HYDR1TAB12 PO; +HYDR1TAB13 PO; -OXYC-323 PO; +OXYC1TAB15 PO
--- NOTE | 2019-12-26 12:53 | RAD ---
EXAM: Lumbar spine, 3 views. HISTORY: Pain. COMPARISON: None. FINDINGS: 3 views of the lumbar spine are obtained. There is no significant listhesis. There is a chronic appearing moderate compression fracture with superior endplate Schmorl's node at L1. The remainder of the vertebral bodies are normal in height and the disc spaces are preserved. IMPRESSION: 1. Chronic appearing moderate L1 fracture. 2. No acute osseous finding. Electronically signed by: Temitope Longo MD (12/26/2019 12:50 PM) [place]
[2019-12-26] MEDS ORDERED: IBUP-577 PO (13:09)
[2019-12-26] MEDS ORDERED: TRAM50TA PO (13:09)
[2019-12-26] MEDS ORDERED: AMOX500C PO (13:09)
--- NOTE | 2019-12-26 13:11 | PHYS DOC ---
Past History Past Medical History: Hypertension, Other Additional Past Medical Histor: back pain, ETOH abuse, neuropathy Past Surgical History: , Gastric Bypass, Other Additional Past Surgical Histo: perf ulcer Smoking: Cigarettes Additional Smoking Information: quit 2 years ago Alcohol Use: Occasionally Drug Use: None Adult General Chief Complaint Chief Complaint: BACK PAIN OR INJURY [facility] HPI Patient is a 39-year-old female who presented to ER today for evaluation of low back pain after she fell off the bunk bed onto the floor 3 nights ago. Patient says she fell out of the bunk bed. landed on her buttock. Patient complaint of low back pain. Patient has history of chronic L1 compression fracture. Patient felt like she aggravated her back problem. Patient denies any bowel or bladder incontinence. Patient denies any abdominal pain, no nausea vomiting. Patient denies any weakness or numbness in her lower extremity. Patient also complaint of left ear pain for a couple days. Patient denies any fever, no nausea vomiting. She denies any head or neck injury. All other ROS is negative unless otherwise noted in HPI Review of Systems Review of Systems See above Allergies Allergies Allergies Coded Allergies Type Severity Reaction Last Updated Verified No Known Drug Allergies 11/29/15 No Physical Exam Physical Exam See above Constitutional: Well developed, well nourished, no acute distress, non-toxic appearance. [] HENT: Normocephalic, atraumatic, bilateral external ears normal, oropharynx moist, no oral exudates, nose normal. Left TM is bulging with erythema. Right nasal nare is erythematous. Eyes: PERRLA, EOMI, conjunctiva normal, no discharge. [] Neck: Normal range of motion, no tenderness, supple, no stridor. [] Cardiovascular:Heart rate regular rhythm, no murmur [] Lungs & Thorax: Bilateral breath sounds clear to auscultation [] Abdomen: Bowel sounds normal, soft, no tenderness, no masses, no pulsatile masses. [] Skin: Warm, dry, no erythema, no rash. [] Back: No tenderness, no CVA tenderness. [] Extremities: No tenderness, no cyanosis, no clubbing, ROM intact, no edema. [] Neurologic: Alert and oriented X 3, normal motor function, normal sensory function, no focal deficits noted. [] Psychologic: Affect normal, judgement normal, mood normal. [] Current Patient Data Vital Signs Vital Signs Date Time Temp Pulse Resp B/P (MAP) Pulse Ox O2 Delivery O2 Flow Rate FiO2 12/26/19 12:18 98.5 76 16 122/83 (96) 100 Room Air EKG EKG [] Radiology/Procedures Radiology/Procedures [][address] [address] IMAGING REPORT Signed PATIENT: OSCAR BUTLEROUNT: [id number] : 1980 LOCATION: ER AGE: 39 SEX: F EXAM STATUS: REG ER ORD. PHYSICIAN: TYLER ANN DO REASON: lower back pain, fell on her buttock 2 days ago PROCEDURE: LUMBAR SPINE 2-3V EXAM: Lumbar spine, 3 views. HISTORY: Pain. COMPARISON: None. FINDINGS: 3 views of the lumbar spine are obtained. There is no significant listhesis. There is a chronic appearing moderate compression fracture with superior endplate Schmorl's node at L1. The remainder of the vertebral bodies are normal in height and the disc spaces are preserved. IMPRESSION: 1. Chronic appearing moderate L1 fracture. 2. No acute osseous finding. Electronically signed by: Temitope Guy MD (12/26/2019 12:50 PM) [facility] [place] DICTATED AND SIGNED BY: TEMITOPE GUY MD DATE: 12/26/19 1253 CC: TYLRE ANN DO; HALLEY STEWART DO, MPH ~ Course & Med Decision Making Course & Med Decision Making Pertinent Labs and Imaging studies reviewed. (See chart for details) [] Dragon Disclaimer Dragon Disclaimer This electronic medical record was generated, in whole or in part, using a voice recognition dictation system. Departure Departure: Impression: Primary Impression: Back pain Additional Impression: Otitis media Disposition: HOME, SELF-CARE Condition: STABLE Referrals: HALLEY STEWART DO, MPH (PCP) follow up with your doctor in 2 days for reevaluation. Patient Instructions: Back Pain, Adult, Otitis Media, Adult Additional Instructions: Thank you for visiting our Emergency Department. We appreciate you trusting us with your care. If any additional problems come up don't hesitate to return to visit us. Please follow up with your primary care provider so they can plan additional care if needed and know about the problem that you had. If symptoms worsen come back to the Emergency Department. Any concerning symptoms that start such as chest pain, shortness of air, weakness or numbness on one side of the body, running high fevers or any other concerning symptoms return to the ER. Scripts Ibuprofen (Ibu) 800 Mg Tablet 1 TAB PO Q8HRS for pain for 7 Days, #21 TAB 0 Refills Prov: TYLER ANN DO 12/26/19 Amoxicillin (AMOXICILLIN) 500 Mg Capsule 1 CAP PO TID for otitis media, #30 CAP Prov: TYLER ANN DO 12/26/19 Tramadol Hcl (TRAMADOL HCL) 50 Mg Tablet 50 MG PO PRN Q6HRS PRN for PAIN for 4 Days, #15 TAB Prov: TYLER ANN DO 12/26/19 Problem Qualifiers TYLER ANN DO Dec 26, 2019 13:10
[2019-12-26] MEDS ORDERED: traMADol 50 MG TABLET PO ONE (13:30)
[2019-12-26 13:40] VITALS: BP 116/74
== END 2019-12-26 13:38 | disposition home or self-care (01) ==
LOC: ER 12:13
DX: M54.5 Low back pain (principal); H66.92 Otitis media, unspecified, left ear; L53.9 Erythematous condition, unspecified; I10 Essential (primary) hypertension; G62.9 Polyneuropathy, unspecified; F17.210 Nicotine dependence, cigarettes, uncomplicated; F10.10 Alcohol abuse, uncomplicated; Z98.890 Other specified postprocedural states
CPT/HCPCS: 72100; 99284

== ENCOUNTER 2020-01-13 19:43 | Emergency (ER) | payer OTHER ==
[~2020-01-13] VITALS: Ht 160 cm; Wt 81.8 kg
[~2020-01-13 19:43] MED LIST changes: +AMOX500C PO; +IBUP-577 PO; +TRAM50TA PO
--- NOTE | 2020-01-13 20:19 | PHYS DOC ---
Past History Past Medical History: Hypertension, IBS, Kidney Stones, Other Additional Past Medical Histor: back pain, ETOH abuse, neuropathy, coliitis Past Surgical History: , Gastric Bypass, Other Additional Past Surgical Histo: perf ulcer Smoking: Cigarettes Alcohol Use: Occasionally Drug Use: None Adult General Chief Complaint Chief Complaint: ".. I feel like I got the flu or something.. just dry heaving now..." HPI HPI Patient is a 39 year old female who presents with above hx and complaints nausea and vomiting and now dry heaves. Patient denies any travel or specific ill contacts. Patient denies any intake bad food. No history immunosuppression. Normally follows with . Review of Systems Review of Systems Constitutional: Denies fever or chills [] Eyes: Denies change in visual acuity, redness, or eye pain [] HENT: Denies nasal congestion or sore throat [] Respiratory: Denies cough or shortness of breath [] Cardiovascular: No additional information not addressed in HPI [] GI: Complaints of generalized abdominal pain, nausea,. Denies vomiting, bloody stools or diarrhea [] : Denies dysuria or hematuria [] Musculoskeletal: Denies back pain or joint pain [] Integument: Denies rash or skin lesions [] Neurologic: Denies headache, focal weakness or sensory changes [] Endocrine: Denies polyuria or polydipsia [] All other systems were reviewed and found to be within normal limits, except as documented in this note. Family History Family History Noncontributory Current Medications Current Medications See nursing for home meds Allergies Allergies Allergies Coded Allergies Type Severity Reaction Last Updated Verified No Known Drug Allergies 11/29/15 No Physical Exam Physical Exam Constitutional: Moderate acute distress, non-toxic appearance. [] HENT: Normocephalic, atraumatic, bilateral external ears normal, oropharynx moist, no oral exudates, nose normal. [] Eyes: PERRLA, EOMI, conjunctiva normal, no discharge. [] Neck: Normal range of motion, no tenderness, supple, no stridor. [] Cardiovascular:Heart rate regular rhythm, no murmur [] Lungs & Thorax: Bilateral breath sounds clear to auscultation [] Abdomen: Bowel sounds normal, soft, left flank and lower tenderness, no masses, no pulsatile masses. [] Old surgery scars. Denies vaginal discharge Skin: Warm, dry, no erythema, no rash. [] Back: No tenderness, mild left CVA tenderness. [] Extremities: No tenderness, no cyanosis, no clubbing, ROM intact, no edema. [] Neurologic: Alert and oriented X 3, normal motor function, normal sensory function, no focal deficits noted. [] Psychologic: Affect anxious, judgement normal, mood normal. [] EKG EKG My interpretation EKG shows a sinus rhythm at 81 bpm. No findings acute STEMI of contralateral changes[] Radiology/Procedures Radiology/Procedures My interpretation of acute abdomen film shows no acute cardiopulmonary findings. No free air in the diaphragm. Nonspecific bowel gas pattern.[] Course & Med Decision Making Course & Med Decision Making Pertinent Labs and Imaging studies reviewed. (See chart for details) Patient's stay on a clear fluid diet only 48 hours. Follow-up primary care. Return if any concerns. Zofran for active nausea and vomiting. Consider colonoscopy. Exam if no improvement [] Impression: 1. Abdomen pain 2.Nausea 3. Anemia 11.3 hemoglobin 4. Mild hypokalemia 3.3 5. Dehydration Dragon Disclaimer Dragon Disclaimer This electronic medical record was generated, in whole or in part, using a voice recognition dictation system. Departure Departure: Disposition: 01 HOME/RESIDENCE PRIOR TO ADM Condition: STABLE Referrals: HALLEY STEWART DO, MPH (PCP) Scripts Ondansetron Hcl (ZOFRAN) 8 Mg Tablet 8 MG PO QIDPRN for active nausea and vomiting, #30 BOTTLE Prov: JONNY DEJESUS MD 01/14/20 Prednisone (PREDNISONE) 50 Mg Tablet 50 MG PO DAILY for bronchitis for 5 Days, #5 TAB Prov: JONNY DEJESUS MD 01/14/20 Ondansetron Hcl (ZOFRAN) 8 Mg Tablet 8 MG PO QIDPRN PRN for active nausea and vomting, #30 BOTTLE Prov: JONNY DEJESUS MD 01/14/20 Prednisone (PREDNISONE) 50 Mg Tablet 50 MG PO DAILY for bronchitis for 5 Days, #5 TAB Prov: JONNY DEJESUS MD 01/14/20 Dragon Disclaimer This chart was dictated in whole or in part using Voice Recognition software in a busy, high-work load, and often noisy Emergency Department environment. It may contain unintended and wholly unrecognized errors or omissions. Dragon Disclaimer This chart was dictated in whole or in part using Voice Recognition software in a busy, high-work load, and often noisy Emergency Department environment. It may contain unintended and wholly unrecognized errors or omissions. JONNY DEJESUS MD Jan 13, 2020 20:19
[2020-01-13] MEDS ORDERED: ONDANSETRON ODT 4 MG TAB.RAPDIS PO ONE (20:45)
[2020-01-13 21:24] LABS: INFLUENZA A PATIENT NEGATIVE (NEGATIVE); INFLUENZA B PATIENT NEGATIVE (NEGATIVE)
[2020-01-13 21:49] LABS: BARBITURATES NEG (NEG); BENZODIAZEPINES NEG (NEG); CANNABINOIDS NEG (NEG); COCAINE NEG (NEG); METHADONE NEG (NEG); OPIATES NEG (NEG); PHENCYCLIDINE NEG (NEG)
[2020-01-13 21:50] LABS: AMPHETAMINE/METHAMPHETAMINE NEG (NEG)
[2020-01-13 22:09] LABS: BACTERIA,URINE 0 /HPF (0-FEW); BILIRUBIN,URINE NEG (NEG); CLARITY,URINE CLEAR; COLOR,URINE STRAW; GLUCOSE,URINE NEG (NEG); NITRITE,URINE NEG (NEG); RBC,URINE 0 /HPF (0-2); SQUAMOUS EPITHELIAL CELL,UR OCC /LPF; UROBILINOGEN,URINE 0.2 mg/dL (0.2 mg/dL); WBC,URINE OCC /HPF (0-4)
[2020-01-13 22:39] LABS: U PREG PATIENT NEGATIVE (NEG)
[2020-01-13] MEDS ORDERED: KETOROLAC 30 MG/ML VIAL. IVP ONE (23:30)
[2020-01-13] MEDS ORDERED: IV RINGERS SOLUTION,LACTATED 1,000 ML IV SCH (23:30)
[2020-01-13] MEDS ORDERED: FAMOTIDINE 20 MG/2 ML VIAL IVP ONE (23:30)
[2020-01-13] MEDS ORDERED: ONDANSETRON PF 4 MG/2 ML VIAL. IVP ONE (23:30)
--- NOTE | 2020-01-13 23:53 | EKG ---
[address] [address] Test Date: 2020-01-13 Test Time: 23:48:48 Pat Name: OSCAR BUTLER Department: Room: Gender: F Tip Length Checker: : 1980 Requested By: JONNY DEJESUS Order Number: [id number] Reading MD: Measurements Intervals [place] Rate: 81 P: 48 [place]: 128 QRS: 26 QRSD: 62 T: 59 QT: 384 QTc: 447 Interpretive Statements SINUS RHYTHM NORMAL ECG RI6.01 No previous ECG available for comparison
[2020-01-14 00:15] LABS: BASO % 1 % (0-3); EOS # 0.1 x10^3/uL (0.0-0.7); EOS % 1 % (0-3); HEMATOCRIT 34.9 % (36.0-47.0); HEMOGLOBIN 11.3 g/dL (12.0-15.5); LYMPH # 1.9 x10^3/uL (1.0-4.8); LYMPH % 22 % (24-48); MEAN CORPUSCULAR HEMOGLOBIN 28 pg (25-35); MEAN CORPUSCULAR HGB CONC 33 g/dL (31-37); MEAN CORPUSCULAR VOLUME 87 fL (79-100); MONO # 0.7 x10^3/uL (0.0-1.1); MONO % 8 % (0-9); NEUT % 69 % (31-73); PLATELET COUNT 344 x10^3/uL (140-400); RED BLOOD COUNT 4.03 x10^6/uL (3.50-5.40); RED CELL DISTRIBUTION WIDTH 14.5 % (11.5-14.5); WHITE BLOOD COUNT 8.7 x10^3/uL (4.0-11.0)
[2020-01-14 00:18] LABS: CALCIUM 8.7 mg/dL (8.5-10.1); CREATININE 0.6 mg/dL (0.6-1.0); GFR 111.3; POTASSIUM 3.3 mmol/L (3.5-5.1)
[2020-01-14 00:27] LABS: ALBUMIN 3.4 g/dL (3.4-5.0); DIRECT BILIRUBIN 0.1 mg/dL (0.0-0.2); TOTAL BILIRUBIN 0.5 mg/dL (0.2-1.0); TOTAL PROTEIN 6.9 g/dL (6.4-8.2)
[2020-01-14] MEDS ORDERED: PRED50TA PO ×2 (01:14→01:42)
[2020-01-14] MEDS ORDERED: ONDA8TAB9 PO ×2 (01:15→01:42)
[2020-01-14 01:45] VITALS: BP 177/111
[2020-01-14] MEDS ORDERED: ALBUTEROL SULFATE 8GM INHALER. INH ONE (02:00)
--- NOTE | 2020-01-14 07:54 | RAD ---
PROCEDURE: ACUTE ABDOMEN SERIES STUDY DATE: 01/14/2020 CLINICAL INDICATION / HISTORY: Nausea and vomiting. TECHNIQUE: Upright PA chest, supine and upright films of the abdomen were obtained. COMPARISON: September 11, [address] FINDINGS: AP view the chest reveals the lungs to be clear. Cardiac and mediastinal silhouette are unremarkable. No free air is identified below the diaphragms. Supine and upright views of the abdomen reveal no dilated loops of bowel or air-fluid levels. No organomegaly is present. No destructive osseous lesions. IMPRESSION: No radiographic evidence for bowel obstruction. Electronically signed by: Addie Medina MD (01/14/2020 7:51 AM) [id number]
== END 2020-01-14 01:48 | disposition home or self-care (01) ==
LOC: ER 19:43
DX: D64.9 Anemia, unspecified (principal); E86.0 Dehydration; E87.6 Hypokalemia; I10 Essential (primary) hypertension; F17.210 Nicotine dependence, cigarettes, uncomplicated
CPT/HCPCS: 36415; 74022; 80048; 80076; 80307; 81001; 81025; 82150; 82550; 83690; 84484; 84702; 85025; 85610; 85730; 87070; 87804; 87880; 93005; 94640; 96361; 96374; 96375; 99285; J2405; J3490; J7120; Q0162

== ENCOUNTER 2020-06-28 22:27 | Inpatient (IN) | payer OTHER ==
[~2020-06-28] VITALS: Ht 160 cm; Wt 101.3 kg
[~2020-06-28 22:27] MED LIST changes: +ONDA8TAB9 PO; +PRED50TA PO
--- NOTE | 2020-06-28 22:45 | PHYS DOC ---
Past History Past Medical History: Alcoholism, Anxiety, Hypertension, IBS, Kidney Stones, Pancreatitis, Other Additional Past Medical Histor: back pain, ETOH abuse, neuropathy, coliitis Past Surgical History: , Gastric Bypass, Other Additional Past Surgical Histo: perf ulcer Smoking: Cigarettes Alcohol Use: Occasionally Drug Use: None General Adult HPI: HPI: ".. I ve been drinking heavy.... I am dehydrated..." "Since about two weeks... ago..I ve been drinking two pints of whiskey a day..."..." I need to get back on my anti-abuse... ".. "now if I try to quit.. I get shaking..and into withdrawal...".." My gut is hurting tonight.. right here in the pit..." Patient is a 40 year old female who presents with above hx and complaints alcohol intoxication and dehydration. Pt. complaints of mid abdomen pain. No history of bad food intake. No history of trauma. No history of immunosuppression. Patient has been on alcohol binge consistently 2 pints of whiskey per day. Patient denies any triggering mechanism for her episode of alcohol abuse. Has done this in the past. Patient does have a history of previous alcohol withdrawal symptoms-seizures. No history of specific ill contacts. No history of travel outside the [place] area. Does have a history of anxiety. Pt.follows with Dr. Brown. Review of Systems: Review of Systems: Constitutional: Denies fever or chills Eyes: Denies change in visual acuity HENT: Denies nasal congestion or sore throat Respiratory: Denies cough or shortness of breath Cardiovascular: Denies chest pain or edema GI: Complains of nausea,. Complaints of vomiting, and epigastric pain. Denies bloody stools or diarrhea : Denies dysuria Musculoskeletal: Denies back pain or joint pain Integument: Denies rash Neurologic: Denies headache, focal weakness or sensory changes Endocrine: Denies polyuria or polydipsia Lymphatic: Denies swollen glands Psychiatric: Denies depression or anxiety Heart Score: HEART Score for Chest Pain: HEART Score for Chest Pain Response (Comments) Value History Slighlty/Non-Suspicious 0 ECG Normal 0 Age < 45 0 Risk Factors 1 or 2 Risk Factors 1 Troponin < Normal Limit 0 Total 1 Risk Factors: Risk Factors: DM, Current or recent (<one month) smoker, HTN, HLP, family history of CAD, obesity. Risk Scores: Score 0 - 3: 2.5% MACE over next 6 weeks - Discharge Home Score 4 - 6: 20.3% MACE over next 6 weeks - Admit for Clinical Observation Score 7 - 10: 72.7% MACE over next 6 weeks - Early Invasive Strategies Family History: Family History: See nursing for home meds Current Medications: Current Meds: See nursing for home meds Allergies: Allergies: Allergies Coded Allergies Type Severity Reaction Last Updated Verified No Known Drug Allergies 11/29/15 No Physical Exam: PE: Constitutional: no acute distress, intoxicated appearance. [] HENT: Normocephalic, atraumatic, bilateral external ears normal, oropharynx moist, no oral exudates, nose normal. [] Eyes: PERRLA, EOMI, conjunctiva normal, no discharge. [] Neck: Normal range of motion, no tenderness, supple, no stridor. [] Cardiovascular tachycardia heart rate regular rhythm, no murmur [] Lungs & Thorax: Bilateral breath sounds equal apex with scattered wheezes on auscultation [] Abdomen: Bowel sounds normal, soft, epigastric tenderness, no masses, no pulsatile masses. [] Old surgery scars. Rebound to epigastric. Skin: Warm, dry, no erythema, no rash. [] Back: No tenderness, no CVA tenderness. [] Extremities: No tenderness, no cyanosis, no clubbing, ROM intact, no edema. [] No psoas sign. Neurologic: Alert and oriented X 3, normal motor function, normal sensory function, no focal deficits noted. [] Mild discoordination. Slightly wide gait. Psychologic: Affect normal, judgement normal, mood normal. [] EKG: EKG: My interpretation of EKG shows a sinus rhythm at 90 bpm. With no acute morphology [] Radiology/Procedures: Radiology/Procedures: [][address] [address] IMAGING REPORT Signed PATIENT: OSCAR BUTLEROUNT: [id number] : 1980 LOCATION: ER AGE: 40 SEX: F EXAM STATUS: REG ER ORD. PHYSICIAN: JONNY DEJESUS MD REASON: abdomen pain-suspect alcoholic pancreatitis PROCEDURE: CT ABD PELV W/ORAL&IV CONTRAST INDICATION: Reason: abdomen pain-suspect alcoholic pancreatitis / Spl. Instructions: OMNI 300, 75ml OMNI 240, 30ml / History: COMPARISON: August 2018 TECHNIQUE: Axial CT images obtained through the abdomen and pelvis with contrast. One or more of the following individualized dose reduction techniques were utilized for this examination: 1. Automated exposure control; 2. Adjustment of the mA and/or kV according to patient size; 3. Use of iterative reconstruction technique. FINDINGS: Sub-4 mm nodules at the right lung base. Abdominal aorta is not aneurysmal. Liver is low density. Calcification of the liver. High-density material within the gallbladder which could be from stones or sludge. Postoperative appearance of the stomach status post bypass. Edema is seen at the pancreas as well as adjacent to duodenum. Spleen unremarkable. No hydronephrosis. Urinary bladder is distended at time of exam. Uterus is visualized. Appendix is partially visualized without definite adjacent inflammatory changes. No dilated loops of bowel suggesting obstruction. Moderate compression deformity of L1. Mild compression deformity of T11. These are chronic in nature There are some suspected Schmorl's nodes. Degenerative changes of the spine with multilevel central canal and neural foraminal stenosis. IMPRESSION: * Edema adjacent to the pancreas which can be seen with pancreatitis. There is also some edema seen adjacent to the duodenum and therefore superimposed duodenitis or duodenal ulcer is not excluded. * Liver is low density which can be seen with fatty infiltration. * Hyperdensity within the gallbladder which could be from sludge and stones. * Contour deformity of the uterus. Fibroid is within the differential. Electronically signed by: Georgina Parkinson MD (06/29/2020 5:42 AM) [id number] DICTATED AND SIGNED BY: GEORGINA PARKINSON MD DATE: 06/29/20 0542 CC: JONNY DEJESUS MD; HALLEY BROWN DO, MPH ~ Course & Med Decision Making: Course & Med Decision Making Pertinent Labs and Imaging studies reviewed. (See chart for details) Patient encouraged to reduce her alcohol intake. Patient follow-up primary care. Patient consider outpatient as well as inpatient alcohol abuse programs. Take a multivitamin daily. Clear fluid diet only x 48 hrs. No solids or milk products. Discussed presentation, testing and tx. plan with Dr. Mi. 0100. Will admit for further eval. and tx. Pt. admitted to Dr. Mi. 0115 hrs. Pt. still waiting for room placement 0200 hrs. At shift change. No room assignment in main hospital - concern there will be not enough nurses for admission. by 0700hrs. Endorse to Dr. Brady if events arise before pt. can be placed in room. O600. Impression; 1. Alcohol abuse ETOH 300 2. Elevated AST/ALT/Alk Phos 172/79/119 3 Elevated Lipase 11,370 4. Alcoholic Pancreatitis 5. Hx. of Alcohol withdrawal [] Dragon Disclaimer: Lyubov Disclaimer: This electronic medical record was generated, in whole or in part, using a voice recognition dictation system. Departure Departure: Disposition: 01 HOME/RESIDENCE PRIOR TO ADM Condition: STABLE Referrals: HALLEY BROWN DO, MPH (PCP) Justification of Admission: Justification of Admission: Justification of Admission Dx: Yes Comments: Acute Alcoholic Pancreatitis Dragon Disclaimer This chart was dictated in whole or in part using Voice Recognition software in a busy, high-work load, and often noisy Emergency Department environment. It may contain unintended and wholly unrecognized errors or omissions. JONNY DEJESUS MD Jun 28, 2020 22:45
[2020-06-28] MEDS ORDERED: IV RINGERS SOLUTION,LACTATED 1,000 ML IV SCH (23:00)
--- NOTE | 2020-06-28 23:02 | EKG ---
[address] [address] Test Date: 2020-06-28 Test Time: 22:56:50 Pat Name: OSCAR BUTLER Department: Room: Gender: F Batch Tester: : 1980 Requested By: JONNY DEJESUS Order Number: [id number] Reading MD: Measurements Intervals [place] Rate: 90 P: 36 [place]: 124 QRS: 16 QRSD: 70 T: 50 QT: 352 QTc: 435 Interpretive Statements SINUS RHYTHM NORMAL ECG RI6.02 No previous ECG available for comparison
[2020-06-28] MEDS ORDERED: MVI, ADULT NO.4 WITH VIT K 10 ML VIAL IV ONE (23:05)
[2020-06-28] MEDS ORDERED: THIAMINE 200 MG/2 ML VIAL. IV ONE (23:16)
[2020-06-28 23:23] LABS: BASO % 0 % (0-3); EOS # 0.1 x10^3/uL (0.0-0.7); EOS % 1 % (0-3); HEMATOCRIT 36.8 % (36.0-47.0); HEMOGLOBIN 12.3 g/dL (12.0-15.5); LYMPH # 1.9 x10^3/uL (1.0-4.8); LYMPH % 29 % (24-48); MEAN CORPUSCULAR HEMOGLOBIN 32 pg (25-35); MEAN CORPUSCULAR HGB CONC 33 g/dL (31-37); MEAN CORPUSCULAR VOLUME 96 fL (79-100); MONO # 0.6 x10^3/uL (0.0-1.1); MONO % 9 % (0-9); NEUT # 4.1 x10^3uL (1.8-7.7); NEUT % 61 % (31-73); PLATELET COUNT 302 x10^3/uL (140-400); RED BLOOD COUNT 3.85 x10^6/uL (3.50-5.40); RED CELL DISTRIBUTION WIDTH 16.7 % (11.5-14.5); WHITE BLOOD COUNT 6.7 x10^3/uL (4.0-11.0)
[2020-06-28 23:24] LABS: CALCIUM 8.1 mg/dL (8.5-10.1); CREATININE 0.8 mg/dL (0.6-1.0); GFR 79.4; POTASSIUM 3.8 mmol/L (3.5-5.1)
[2020-06-28 23:37] LABS: ALBUMIN 3.1 g/dL (3.4-5.0); DIRECT BILIRUBIN 0.2 mg/dL (0.0-0.2); MAGNESIUM 1.8 mg/dL (1.8-2.4); TOTAL BILIRUBIN 0.5 mg/dL (0.2-1.0); TOTAL PROTEIN 6.5 g/dL (6.4-8.2)
[2020-06-28] MEDS ORDERED: MVI, ADULT NO.4 WITH VIT K 10 ML, THIAMINE INJ 100 MG in IV RINGERS SOLUTION,LACTATED 1... IV ONE ×3 (23:59)
[2020-06-29 00:11] LABS: BARBITURATES NEG (NEG); BENZODIAZEPINES POS (NEG); CANNABINOIDS NEG (NEG); COCAINE NEG (NEG); METHADONE NEG (NEG); OPIATES POS (NEG); PHENCYCLIDINE NEG (NEG)
[2020-06-29 00:16] LABS: AMPHETAMINE/METHAMPHETAMINE NEG (NEG)
[2020-06-29 00:22] LABS: BILIRUBIN,URINE NEG (NEG); CLARITY,URINE CLEAR; COLOR,URINE YELLOW; GLUCOSE,URINE NEG (NEG); NITRITE,URINE NEG (NEG); RBC,URINE OCC /HPF (0-2); WBC,URINE OCC /HPF (0-4)
[2020-06-29 00:23] LABS: BACTERIA,URINE 0 /HPF (0-FEW); SQUAMOUS EPITHELIAL CELL,UR MOD /LPF
[2020-06-29] MEDS ORDERED: MAGNESIUM HYDROXIDE 2,400 MG/30 ML ORAL.SUSP. PO ONE (01:00)
[2020-06-29] MEDS ORDERED: ONDANSETRON PF 4 MG/2 ML VIAL. IVP ONE (01:00)
[2020-06-29] MEDS ORDERED: FAMOTIDINE 20 MG/2 ML VIAL IVP ONE (01:00)
[2020-06-29] MEDS ORDERED: SUCRALFATE 1 GM TABLET. PO ONE (01:00)
[2020-06-29] MEDS ORDERED: ONDANSETRON PF 4 MG/2 ML VIAL. IVP PRN (01:15)
[2020-06-29] MEDS ORDERED: IV RINGERS SOLUTION,LACTATED 1,000 ML IV SCH (01:15)
[2020-06-29] MEDS ORDERED: CONTRAST GIVEN. MC PRN (01:15)
[2020-06-29] MEDS ORDERED: IOHEXOL 300 MG/ML 75 ML VIAL. IV ONE (01:30)
[2020-06-29] MEDS ORDERED: IOHEXOL 240 MG/ML 50ML VIAL. PO ONE (01:30)
[2020-06-29] MEDS ORDERED: IV RINGERS SOLUTION,LACTATED 1,000 ML IV ONE (04:00)
[2020-06-29] MEDS: IPRATRPIUM/ALBUTEROL 0.5/2.5MG 3 ML NEBU. NEB SCH ×2 (05:44→12:22)
--- NOTE | 2020-06-29 05:45 | RAD ---
INDICATION: Reason: abdomen pain-suspect alcoholic pancreatitis / Spl. Instructions: OMNI 300, 75ml OMNI 240, 30ml / History: COMPARISON: August 2018 TECHNIQUE: Axial CT images obtained through the abdomen and pelvis with contrast. One or more of the following individualized dose reduction techniques were utilized for this examination: 1. Automated exposure control; 2. Adjustment of the mA and/or kV according to patient size; 3. Use of iterative reconstruction technique. FINDINGS: Sub-4 mm nodules at the right lung base. Abdominal aorta is not aneurysmal. Liver is low density. Calcification of the liver. High-density material within the gallbladder which could be from stones or sludge. Postoperative appearance of the stomach status post bypass. Edema is seen at the pancreas as well as adjacent to duodenum. Spleen unremarkable. No hydronephrosis. Urinary bladder is distended at time of exam. Uterus is visualized. Appendix is partially visualized without definite adjacent inflammatory changes. No dilated loops of bowel suggesting obstruction. Moderate compression deformity of L1. Mild compression deformity of T11. These are chronic in nature There are some suspected Schmorl's nodes. Degenerative changes of the spine with multilevel central canal and neural foraminal stenosis. IMPRESSION: * Edema adjacent to the pancreas which can be seen with pancreatitis. There is also some edema seen adjacent to the duodenum and therefore superimposed duodenitis or duodenal ulcer is not excluded. * Liver is low density which can be seen with fatty infiltration. * Hyperdensity within the gallbladder which could be from sludge and stones. * Contour deformity of the uterus. Fibroid is within the differential. Electronically signed by: Marcello Miller MD (06/29/2020 5:42 AM) [id number]
[2020-06-29 07:46] LABS: AMYLASE 453 U/L (25-115)
[2020-06-29 08:01] LABS: LIPASE 9540 U/L (73-393)
[2020-06-29] MEDS: MVI, ADULT NO.4 WITH VIT K 10 ML, FOLIC ACID INJ 1 MG, THIAMINE INJ 100 MG in IV RINGER... IV SCH ×4 (08:28)
[2020-06-29 11:09] VITALS: BP 156/98
[2020-06-29] MEDS ORDERED: HALOPERIDOL LACT 5 MG/ML VIAL. IM PRN (12:30)
[2020-06-29] MEDS ORDERED: diphenhydrAMINE 50 MG/ML VIAL IVP PRN (12:30)
[2020-06-29] MEDS ORDERED: IPRATRPIUM/ALBUTEROL 0.5/2.5MG 3 ML NEBU. NEB PRN (12:30)
[2020-06-29] MEDS ORDERED: LORazepam 1 MG TABLET PO PRN (12:30)
--- NOTE | 2020-06-29 12:32 | NUR ---
The patient, OSCAR BUTLER, 40 y/o, F admitted by MAYLIN REYES MD, was given written information regarding hospital policies, unit procedures and contact persons. Valuables were checked and LEFT WITH PATIENT IN HER ROOM. PT IS PLACED ON MONITOR AND PT IS TACHYCARDIC ORDERS FOR ATIVAN IN PLACE. WILL CTM AND ASSES NEEDED.
--- NOTE | 2020-06-29 13:25 | HP ---
ADMIT DATE: 06/29/2020 HISTORY OF PRESENT ILLNESS: The patient is a 40-year-old female patient who presented with a complaint of abdominal pain. The pain is mostly in the epigastric area radiating through and through to the back associated with some nausea and vomiting, but denied any other complaint. She stated she has been drinking heavily over the last 2 weeks, has been drinking almost a pint of whiskey daily although she told the ER physician that she was drinking 2 pints of whiskey a day and that she needs to go back on her anti-abuse. She stated whenever she tried to quit, she goes into shaking and into withdrawal. She was extensively evaluated and was found to have blood alcohol level of 300. She has also elevated liver enzymes and markedly elevated lipase of 11,370 and was diagnosed with acute alcoholic pancreatitis and alcohol withdrawal; was admitted, was kept n.p.o. and was started on pain medication, antianxiety and also alcohol withdrawal protocol. PAST MEDICAL HISTORY: Significant for alcoholism, anxiety, hypertension, irritable bowel syndrome, kidney stones and apparently has had a previous history of pancreatitis, although she has never been admitted to our hospital before, although she has been seen frequently in the Emergency Room. PAST SURGICAL HISTORY: Significant for gastric bypass surgery and perforated ulcer. ALLERGIES: She has no known drug allergies. MEDICATIONS: She is currently on following medications: Apparently, she is only on multivitamin and calcium tablets. FAMILY HISTORY: She has 2 brothers, older and apparently healthy. Her one brother at age of 46, committing suicide. Her father is still alive at the age of 75 and healthy. Her mother is at the age of 63 because of coronary artery disease and lung cancer. SOCIAL HISTORY: She is , has 2 sons. She does not smoke, but drinks alcohol heavily. She drinks up to 2 pints of whiskey on a daily basis. Does not use any drugs. 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 REVIEW OF SYSTEMS: As per history of present illness. PHYSICAL EXAMINATION: GENERAL: On arrival to the Emergency Room, she looked well and was clearly in no apparent respiratory distress. No pallor, jaundice, cyanosis or thyromegaly. No jugular venous distention. No limb edema. VITAL SIGNS: Her heart rate was 93, blood pressure was 137/81, temperature was 99, respiratory rate was 20, and oxygen saturation was 94%. HEAD, EYES, EARS, NOSE AND THROAT: Normocephalic, atraumatic. NECK: Supple. HEART: Normal first and second heart sounds. No gallop, rub or murmur. CHEST: Clear to auscultation. No crepitation or rhonchi. ABDOMEN: Distended with tenderness mostly in the epigastric area. There is no guarding or rigidity. No organomegaly. All hernial orifices are intact. Bowel sounds are normal. She has multiple old surgical scars. NEUROLOGIC: She is awake, alert, responding appropriately. All cranial nerves intact. EXTREMITIES: She moves extremities without difficulty. Examination of the extremities showed no clubbing, cyanosis or edema. PSYCHOLOGICAL: Her affect, judgment and mood are normal. DIAGNOSTIC STUDIES: EKG showed that she was in sinus rhythm at 90 beats per minute with no acute morphology. Her CT scan of the abdomen and pelvis showed that the patient has edema adjacent to the pancreas, which can be seen with pancreatitis. There is also some edema seen adjacent to the duodenum and therefore superimposed duodenitis or duodenal ulcer is not excluded. The liver has low density, which can be seen with fatty liver; hyperdensity within the gallbladder, which could be from sludge and stones; contour deformity of the uterus, fibroid is within the differential. LABORATORY DATA: She has had lab work which showed a white cell count of 6700, hemoglobin 12, hematocrit 36, MCV 96 and platelet count ____ with normal manual differential. Her serum sodium was 138, potassium 3.8, chloride 101, bicarbonate 24, anion gap of 13, BUN 12, creatinine 0.8. Her blood sugar was 132, calcium was 8.1, magnesium was 1.8. Total bilirubin is normal. AST, ALT, alkaline phosphatase are all elevated. Her CK was 54. Beta natriuretic peptide was 40. Total protein was 6.5, albumin 3.1. Serum lipase was 11,370. Her prothrombin time, INR and aPTT were normal. Urinalysis was essentially unremarkable and toxic screen showed that she was positive for opiates, benzodiazepine, and blood alcohol level of 300 mg. ASSESSMENT AND PLAN: The patient was admitted with alcohol-induced pancreatitis. She was started on a banana bag, IV famotidine and fentanyl 50 mcg IV every 3 hours together with alcohol withdrawal protocol. We will keep the patient n.p.o. and probably do her abdominal ultrasound tomorrow and decide on further management accordingly. MAYLIN REYES MD DR: JOSEF/rene JOB#: [id number] / [id number]
[2020-06-29] MEDS: IV RINGERS SOLUTION,LACTATED 1,000 ML IV SCH (14:11)
[2020-06-29] MEDS: FAMOTIDINE 20 MG/2 ML VIAL IVP SCH ×2 (14:11→21:18)
[2020-06-29 15:01] VITALS: BP 165/100
[2020-06-29] MEDS: HYDROmorphone 2 MG TABLET PO PRN ×2 (18:42→21:18)
[2020-06-29 19:26] VITALS: BP 153/96
[2020-06-29 22:54] VITALS: BP 143/88
[2020-06-30] MEDS: HYDROmorphone 2 MG TABLET PO PRN ×4 (00:27→20:17)
--- NOTE | 2020-06-30 00:33 | NUR ---
Patient stated she wanted to go to the vending machines to look for cough drops. Informed patient that vending machines do not sell cough drops; patient stated she wanted to look anyway, reminded patient that she is not to eat. Followed patient to vending area and witnessed her purchasing food and hiding it under her gown. Patient denied purchasing food upon return to room. Reinforced the need to remain NPO.
[2020-06-30] MEDS: IV RINGERS SOLUTION,LACTATED 1,000 ML IV SCH ×2 (05:25→15:10)
[2020-06-30 05:49] VITALS: BP 132/83
[2020-06-30 06:00] LABS: BASO % 0 % (0-3); EOS # 0.1 x10^3/uL (0.0-0.7); EOS % 2 % (0-3); HEMATOCRIT 30.3 % (36.0-47.0); HEMOGLOBIN 10.3 g/dL (12.0-15.5); LYMPH # 1.2 x10^3/uL (1.0-4.8); LYMPH % 20 % (24-48); MEAN CORPUSCULAR HEMOGLOBIN 32 pg (25-35); MEAN CORPUSCULAR HGB CONC 34 g/dL (31-37); MEAN CORPUSCULAR VOLUME 96 fL (79-100); MONO # 0.3 x10^3/uL (0.0-1.1); MONO % 5 % (0-9); NEUT # 4.2 x10^3uL (1.8-7.7); NEUT % 72 % (31-73); PLATELET COUNT 203 x10^3/uL (140-400); RED BLOOD COUNT 3.18 x10^6/uL (3.50-5.40); RED CELL DISTRIBUTION WIDTH 16.3 % (11.5-14.5); WHITE BLOOD COUNT 5.8 x10^3/uL (4.0-11.0)
[2020-06-30 06:18] LABS: ALBUMIN 2.9 g/dL (3.4-5.0); ALBUMIN/GLOBULIN RATIO 0.9 (1.0-1.7); CALCIUM 8.1 mg/dL (8.5-10.1); CREATININE 0.8 mg/dL (0.6-1.0); GFR 79.4; POTASSIUM 3.6 mmol/L (3.5-5.1); TOTAL BILIRUBIN 1.2 mg/dL (0.2-1.0)
[2020-06-30] MEDS: FAMOTIDINE 20 MG/2 ML VIAL IVP SCH ×2 (07:35→20:18)
[2020-06-30] MEDS: MVI, ADULT NO.4 WITH VIT K 10 ML, FOLIC ACID INJ 1 MG, THIAMINE INJ 100 MG in IV RINGER... IV SCH ×4 (07:36)
--- NOTE | 2020-06-30 08:57 | RAD ---
ABDOMEN LTD History: Reason: RUQ PAIN / Spl. Instructions: / History: Comparison: CT June 29, 2020. Technique: Transabdominal ultrasound images are obtained of the right upper quadrant. Findings: Visualized pancreas is is not well seen due to overlying bowel gas. Liver is increased in echogenicity. Right hepatic lobe measures 17.2 cm. Portal flow is hepatopedal. Mobile stones within the lumen of the gallbladder. No gallbladder wall thickening. No pericholecystic fluid. Common bile duct measures 5 mm in diameter. The right kidney measures 10.8 x 4.9 x 4.7 cm. No hydronephrosis. Visualized portions of the aorta and IVC have normal caliber. IMPRESSION: 1. Cholelithiasis. 2. Increased hepatic echotexture, may indicate steatosis. Electronically signed by: Bora Segura DO (06/30/2020 8:55 AM) [id number]
[2020-06-30 10:45] VITALS: BP 143/91
[2020-06-30 15:12] VITALS: BP 157/98
[2020-06-30] MEDS: ONDANSETRON PF 4 MG/2 ML VIAL. IVP PRN (18:11)
--- NOTE | 2020-06-30 19:22 | PN ---
DATE: 06/30/2020 SUBJECTIVE: The patient is resting, slightly propped up in bed, no apparent distress. She continued to complain of abdominal pain, although she denied any nausea, vomiting, was started on a clear liquid diet and that she has been tolerating so far. Her serum lipase is down to 1018. PHYSICAL EXAMINATION: GENERAL: When I examined her, she looked well and was clearly in no apparent respiratory distress. No pallor, jaundice, cyanosis or thyromegaly. No jugular venous distention. No lower limb edema. VITAL SIGNS: Her heart rate was 57, blood pressure was 143/91, temperature was 98.2, respiratory rate 22, and oxygen saturation was 94%. HEAD, EYES, EARS, NOSE AND THROAT: Showed normocephalic, atraumatic. NECK: Supple. HEART: Showed normal first and second heart sounds. No gallop or murmur. CHEST: Clear to auscultation. No crepitation or rhonchi. ABDOMEN: Distended, soft, nontender. NEUROLOGIC: She was awake, alert, responding appropriately. All cranial nerves are intact. She moves extremities without difficulty. She ambulates without assistance or assistive devices. Her intake was 2000, no output was recorded. LABORATORY DATA: Her lab work this morning showed a serum sodium 135, potassium 3.6, chloride 100, bicarbonate 27, anion gap of 8, BUN 6, creatinine 0.8, estimated GFR was 79 mL per minute. Her glucose 116, calcium was 8.1. Total bilirubin, AST, ALT, alkaline phosphatase were normal. Total protein was 6, albumin was 2.9. Her serum lipase was 1000, down from 9500. ASSESSMENT: 1. Alcohol-induced pancreatitis, resolving slowly. Her serum lipase came down from 11,000 to 1000. 2. Alcoholism, alcohol withdrawal syndrome. The plan is to continue with the banana bag. Continue with alcohol withdrawal protocol. We did actually a transabdominal ultrasound, which showed that the visualized pancreas is not well seen due to overlying bowel gas. Liver is increased in echogenicity, right hepatic lobe measures 17.2 cm. Portal flow is hepatopetal. She has mobile stones within the lumen of the gallbladder. No gallbladder wall thickening or pericholecystic fluid. Her common bile duct measures 5 mm in diameter, right kidney is 10.8 x 4.9 x 4.7 cm. No hydronephrosis. The visualized portion of the aorta and IVC filter are normal. PLAN: To obviously continue with alcohol withdrawal protocol. Continue with pain management. She is now tolerating clear liquid diet. We will repeat her lab works and once her lipase has normalized, we will advance her diet and discharge her home. I have had a lengthy discussion with her about the need to quit drinking alcohol as there is a high likelihood that she will have recurrent episodes of pancreatitis as long as she is continuing to drink. MAYLIN REYES MD DR: JOSEF/rene JOB#: [id number] / [id number]
[2020-06-30 19:30] VITALS: BP 172/107
[2020-06-30] MEDS: cloNIDine HCL 0.1 MG TABLET PO PRN (20:17)
[2020-06-30 23:11] VITALS: BP 162/97
[2020-07-01] MEDS: ONDANSETRON PF 4 MG/2 ML VIAL. IVP PRN (00:08)
[2020-07-01] MEDS: HYDROmorphone 2 MG TABLET PO PRN ×3 (00:09→13:41)
[2020-07-01] MEDS: cloNIDine HCL 0.1 MG TABLET PO PRN ×2 (00:09→05:32)
--- NOTE | 2020-07-01 04:12 | NUR ---
Shift Note: Pt a/ox4, VSS (no longer showing tachycardia on monitor), pt eating and drinking (several trips to the vending machine to purchase snacks of her choice), pt continues to request oral pain medication with pain scored at an 8 prior to medication administration, pt verbalizes a desire to stop drinking. Pt has been pleasant and cooperative with staff.
[2020-07-01 05:43] VITALS: BP 195/117
[2020-07-01] MEDS: MVI, ADULT NO.4 WITH VIT K 10 ML, FOLIC ACID INJ 1 MG, THIAMINE INJ 100 MG in IV RINGER... IV SCH ×4 (08:13)
[2020-07-01] MEDS: FAMOTIDINE 20 MG/2 ML VIAL IVP SCH (08:13)
[2020-07-01 10:49] LABS: CALCIUM 8.1 mg/dL (8.5-10.1); CREATININE 0.7 mg/dL (0.6-1.0); GFR 92.7; MAGNESIUM 1.6 mg/dL (1.8-2.4); POTASSIUM 3.6 mmol/L (3.5-5.1)
[2020-07-01 11:27] VITALS: BP 152/94
[2020-07-01] MEDS ORDERED: OXYC5TAB88 PO (14:45)
[2020-07-01] MEDS ORDERED: LORA-254 PO (14:45)
--- NOTE | 2020-07-01 15:10 | NUR ---
discussed discharge information with pt, educated about need to quit drinking and explained new medication prescriptions. patient verbalized understanding. all questions asked and answered. pt states "I am done drinking..." wheeled pt to husbands car out of the main entranced.
== END 2020-07-01 15:05 | disposition home or self-care (01) | DRG 439 ==
LOC: ER 22:27 → 1 SOUTH 06-29 01:00
PROVIDERS: ADMIT Internal Medicine; ATTEND Internal Medicine
DX: K85.20 Alcohol induced acute pancreatitis without necrosis or infection (principal); F10.239 Alcohol dependence with withdrawal, unspecified; I10 Essential (primary) hypertension; Y90.8 Blood alcohol level of 240 mg/100 ml or more; Z80.1 Family history of malignant neoplasm of trachea, bronchus and lung; G62.9 Polyneuropathy, unspecified; F41.9 Anxiety disorder, unspecified; Z82.49 Family history of ischemic heart disease and other diseases of the circulatory system; Z87.442 Personal history of urinary calculi; Z87.891 Personal history of nicotine dependence; Z98.84 Bariatric surgery status
CPT/HCPCS: 36415; 74177; 76705; 80048; 80053; 80076; 80307; 81001; 81025; 82150; 82550; 83690; 83735; 83880; 84484; 85025; 85610; 85730; 93005; 96365; 96366; 96375; G0480; J2060; J2405; J3010; J3490; J7120; Q9966; Q9967; 99285-25

== ENCOUNTER 2020-07-11 09:50 | Emergency (ER) | payer OTHER ==
[~2020-07-11] VITALS: Ht 160 cm; Wt 98.1 kg
[~2020-07-11 09:50] MED LIST changes: +LORA-254 PO; +OXYC5TAB88 PO
--- NOTE | 2020-07-11 10:35 | PHYS DOC ---
Past History Past Medical History: Alcoholism, Anxiety, Depression, Hypertension, IBS, Kidney Stones, Pancreatitis, Other Additional Past Medical Histor: back pain, ETOH abuse, neuropathy, coliitis Past Surgical History: , Gastric Bypass, Other Additional Past Surgical Histo: perf ulcer Smoking: Cigarettes Alcohol Use: Heavy Drug Use: None General Adult EDM: Chief Complaint: ALCOHOL INTOXICATION HPI: HPI: 40-year-old female past medical history significant for hypertension, alcoholism with history of pancreatitis, presents the ED complaints of nausea and upper abdominal discomfort. States she woke up and drank a pint of whiskey. Reports recent admission in the past month for alcohol withdrawal. Denies any falls or trauma, not on any anticoagulants. Review of systems: Denies associated fever, chills, headache, neck stiffness, sore throat, cough, chest pain or pressure, dyspnea, hemoptysis, leg swelling, melena, hematochezia, hematemesis, vomiting, diarrhea, earache, back pain, suicidal ideations, homicidal ideations or neuro deficits. Review of Systems: Review of Systems: Constitutional: Denies fever or chills Eyes: Denies change in visual acuity HENT: Denies nasal congestion or sore throat Respiratory: Denies cough or shortness of breath Cardiovascular: Denies chest pain or edema GI: Denies abdominal pain, nausea, vomiting, bloody stools or diarrhea : Denies dysuria Musculoskeletal: Denies back pain or joint pain Integument: Denies rash Neurologic: Denies headache, focal weakness or sensory changes Endocrine: Denies polyuria or polydipsia Lymphatic: Denies swollen glands Psychiatric: Denies depression or anxiety Heart Score: Risk Factors: Risk Factors: DM, Current or recent (<one month) smoker, HTN, HLP, family history of CAD, obesity. Risk Scores: Score 0 - 3: 2.5% MACE over next 6 weeks - Discharge Home Score 4 - 6: 20.3% MACE over next 6 weeks - Admit for Clinical Observation Score 7 - 10: 72.7% MACE over next 6 weeks - Early Invasive Strategies Allergies: Allergies: Allergies Coded Allergies Type Severity Reaction Last Updated Verified No Known Drug Allergies 06/28/20 No Physical Exam: PE: Constitutional: Well developed, well nourished, no acute distress, non-toxic appearance. [] HENT: Normocephalic, atraumatic, bilateral external ears normal, oropharynx moist, no oral exudates, nose normal. [] Eyes: PERRLA, EOMI, conjunctiva normal, no discharge. [] Neck: Normal range of motion, no tenderness, supple, no stridor. [] Cardiovascular:Heart rate regular rhythm, no murmur [] Lungs & Thorax: Bilateral breath sounds clear to auscultation [] Abdomen: Bowel sounds normal, soft, no tenderness, no masses, no pulsatile masses. [] Skin: Warm, dry, no erythema, no rash. [] Back: No tenderness, no CVA tenderness. [] Extremities: No tenderness, no cyanosis, no clubbing, ROM intact, no edema. [] Neurologic: Alert and oriented X 3, normal motor function, normal sensory function, no focal deficits noted. [] Psychologic: Affect normal, judgement normal, mood normal. [] Current Patient Data: Vital Signs: Vital Signs Date Time Temp Pulse Resp B/P (MAP) Pulse Ox O2 Delivery O2 Flow Rate FiO2 07/11/20 10:30 79 16 161/98 (119) 98 Room Air 07/11/20 10:07 98.1 EKG: EKG: [] Radiology/Procedures: Radiology/Procedures: [] Course & Med Decision Making: Course & Med Decision Making Pertinent Labs and Imaging studies reviewed. (See chart for details) [] Dragon Disclaimer: Dragon Disclaimer: This electronic medical record was generated, in whole or in part, using a voice recognition dictation system. Departure Departure: Impression: Primary Impression: Alcohol intoxication Additional Impression: Nausea alone Disposition: 01 HOME/RESIDENCE PRIOR TO ADM Condition: STABLE Referrals: HALLEY STEWART DO, MPH (PCP) Patient Instructions: Alcohol Intoxication Additional Instructions: [facility] ([place] [facility]) [address] [place] [address] , [id number], Scripts Chlordiazepoxide Hcl (CHLORDIAZEPOXIDE HCL) 25 Mg Capsule 25 MG PO PRN PRN for ALCOHOL WITHDRAWAL MDD 300, #15 CAP Take 2 tablets q6h x1 day Take 1 tablet q6h x 1 day Take 1 tablet bid x 1 day Take 1 tablet qhs x1 day Prov: TRACIE SMILEY DO 07/11/20 Justification of Admission: Justification of Admission: Justification of Admission Dx: N/A TRACIE SMILEY DO Jul 11, 2020 10:35
[2020-07-11] MEDS: ONDANSETRON PF 4 MG/2 ML VIAL. IVP ONE (10:39)
[2020-07-11 10:45] LABS: BASO % 1 % (0-3); EOS % 1 % (0-3); HEMATOCRIT 38.1 % (36.0-47.0); HEMOGLOBIN 12.5 g/dL (12.0-15.5); LYMPH # 1.6 x10^3/uL (1.0-4.8); LYMPH % 39 % (24-48); MEAN CORPUSCULAR HEMOGLOBIN 32 pg (25-35); MEAN CORPUSCULAR HGB CONC 33 g/dL (31-37); MEAN CORPUSCULAR VOLUME 98 fL (79-100); MONO # 0.5 x10^3/uL (0.0-1.1); MONO % 11 % (0-9); NEUT % 49 % (31-73); PLATELET COUNT 336 x10^3/uL (140-400); RED BLOOD COUNT 3.88 x10^6/uL (3.50-5.40); RED CELL DISTRIBUTION WIDTH 16.7 % (11.5-14.5); WHITE BLOOD COUNT 4.1 x10^3/uL (4.0-11.0)
[2020-07-11 11:01] LABS: CALCIUM 8.4 mg/dL (8.5-10.1); CREATININE 0.8 mg/dL (0.6-1.0); GFR 79.4; POTASSIUM 3.6 mmol/L (3.5-5.1)
[2020-07-11] MEDS: IBUPROFEN 600 MG TABLET. PO ONE (11:04)
[2020-07-11 11:08] LABS: PREG TEST PT QUAL NEGATIVE (NEG)
[2020-07-11 12:47] VITALS: BP 134/68
[2020-07-11] MEDS ORDERED: CHLO25CA9 PO (12:49)
== END 2020-07-11 12:53 | disposition home or self-care (01) ==
LOC: ER 09:50
DX: F10.229 Alcohol dependence with intoxication, unspecified (principal); R11.0 Nausea; F41.9 Anxiety disorder, unspecified; F32.9 Major depressive disorder, single episode, unspecified; I10 Essential (primary) hypertension; K58.9 Irritable bowel syndrome, unspecified; F17.210 Nicotine dependence, cigarettes, uncomplicated; Z87.442 Personal history of urinary calculi; Z98.890 Other specified postprocedural states; Z98.84 Bariatric surgery status; Y90.7 Blood alcohol level of 200-239 mg/100 ml
CPT/HCPCS: 36415; 80048; 83690; 84703; 85025; 96374; 99283; G0480; J2405

== ENCOUNTER 2021-03-13 08:50 | Emergency (ER) | payer OTHER ==
[~2021-03-13] VITALS: Ht 162.6 cm; Wt 102.5 kg
[~2021-03-13 08:50] MED LIST changes: +CHLO25CA9 PO
--- NOTE | 2021-03-13 08:58 | PHYS DOC ---
Past History Past Medical History: Alcoholism, Anxiety, Depression, Hypertension, IBS, Kidney Stones, Pancreatitis, Other Additional Past Medical Histor: back pain, ETOH abuse, neuropathy, coliitis Past Surgical History: , Gastric Bypass, Other Additional Past Surgical Histo: perf ulcer Smoking: Cigarettes Alcohol Use: Heavy Drug Use: None General Adult EDM: Chief Complaint: ALTERED MENTAL STATUS HPI: HPI: Patient is a 41-year-old female brought in by EMS for altered mental status. Has been called because patient has been on couch has been increasingly confused over the past 5 days approximately. Per EMS report she had a fall a few days ago where she struck her face on the carpet. Unsure if there is any loss of consciousness. Patient and deny any past medical history or history of liver disease. Does have history of drug and alcohol abuse in the past. Unsure if she is still using. Patient is slow to respond but follows commands. Review of Systems: Review of Systems: All other systems within normal limits except for as noted in the HPI Allergies: Allergies: Allergies Coded Allergies Type Severity Reaction Last Updated Verified No Known Drug Allergies 06/28/20 No Physical Exam: PE: Constitutional: Well developed, well nourished, no acute distress, non-toxic appearance. [] HENT: Normocephalic, atraumatic, bilateral external ears normal, nose normal. [] Eyes: PERRLA, scleral icterus, no discharge. [] Neck: No rigidity, supple, no stridor. [] Cardiovascular: Regular rate and rhythm, brisk cap refill [] Lungs & Thorax: Non labored symmetric respirations, no tachypnea or respiratory distress [] Abdomen: Soft, nondistended. Skin: Warm, dry, no erythema, no rash. Jaundice and abrasions to chin [] Back: Unremarkable Extremities: No deformities, range of motion grossly intact, no lower extremity edema [] Neurologic: Alert and slow to respond, follows commands [] Psychologic: Affect normal, judgement normal, mood normal. [] EKG: EKG: Sinus tachycardia, heart rate [address] elevation or depression, no ectopy. Normal intervals. T waves unremarkable. [] Radiology/Procedures: Radiology/Procedures: CT CHEST_ABDOMEN_ AND PELVIS WITHOUT CONTRAST 03/13/2021 10:51 AM INDICATION: Altered mental status, liver failure COMPARISON: CT abdomen/pelvis 06/29/2020 TECHNIQUE: Multiple axial CT images of the chest, abdomen and pelvis were obtained without intravenous contrast. Coronal and sagittal reformats are provided. FINDINGS: Evaluation degraded by motion artifact. Thyroid gland is normal in appearance. No pathologically enlarged thoracic lymph nodes. Heart size within normal limits. Thoracic aorta is normal in course and caliber. No pleural effusions, pulmonary vascular congestion or pneumothorax. Lungs are clear. No suspicious solid noncalcified pulmonary nodules. Severe hepatic steatosis. There is a hydropic gallbladder measuring 6.3 cm in transverse dimension. Cholelithiasis. Spleen and adrenal glands are normal in ap pearance. Mild atrophy of the pancreas. Abdominal aorta is normal in course and caliber. No pathologically enlarged lymph nodes are identified in abdomen and pelvis within the limitations of motion artifact. No free fluid or free intraperitoneal air. Gastric bypass post surgical changes. Bowel is partly limited by motion artifact. No bowel obstruction or inflammation. Limited evalu ation of the appendix secondary to motion. Appendix is not definitively visualized. No pericecal inflammatory changes are identified. Uterus and adnexa are normal by CT. Pradhan catheter decompresses the urinary bladder. No calculi identified within the kidneys, ureters or urinary bladder. No hydronephrosis. No suspicious osseous abnormality is identified. Chronic appearing superior endplate compression deformities identified at L1 with percent height loss and superior endplate retropulsion. Schmorl's nodes are identified at T11-T12 with mild height loss. Vertebral segmentation anomaly identified at T9-T10 and T5-T6 as well as at the craniocervical junction. Findings are limited evaluation secondary motion. IMPRESSION: Evaluation is degraded by motion artifact. Severe hepatic steatosis. Correlate with hepatic enzymes to assess for steatohepatitis. Gastric bypass post surgical changes are identified without bowel obstruction or inflammation. Cholelithiasis with hydropic gallbladder. Correlate with right upper quadrant ultrasound assess for cholecystitis. 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 If there is persistent clinical concern, dedicated CT thoracic spine with sedation could be of benefit. CT HEAD AND MAXILLOFACIAL WO, CT CERVICAL SPINE WO History: Reason: fall, ams, face injury, jaundice / Spl. Instructions: Comparison: October 02, 2018 Technique: Noncontrast CT imaging was performed of the head, maxillofacial and cervical spine. Coronal and sagittal reconstructions were performed. Exposure: One or more of the following individualized dose reduction techniques were utilized for this examination: 1. Automated exposure control 2. Adjustment of the mA and/or kV according to patient size 3. Use of iterative reconstruction technique. Findings: Head CT: No intracranial hemorrhage. No mass effect. No hydrocephalus. Extra- axial spaces are unremarkable. Frontal scalp soft tissue wound. Maxillofacial CT: Motion degraded evaluation. The entire mandible not included in the image. No definite acute fracture although degraded evaluation especially concerned imaged portions of the mandible. Orbits are unremarkable. Paranasal sinuses and mastoid air cells are clear. No acute calvarial fracture. Cervical spine CT: Motion degraded evaluation. Right upper chest subcutaneous gas. Normal vertebral body alignment. Significantly degraded evaluation of the upper cervical spine and upper thoracic spine due to patient motion. No definite acute fracture. Mild degenerative disc changes. No significant canal narrowing. No definite neuroforaminal narrowing although evaluation is degraded. Soft tissues are unremarkable. Impression: Head CT: 1. No acute intracranial abnormality. Maxillofacial CT: 1. Degraded evaluation due to patient motion. The mandible is not entirely evaluated. No definite fracture. If persistent clinical concern, recommend repeat imaging. Cervical spine CT: CT HEAD AND MAXILLOFACIAL WO, CT CERVICAL SPINE WO History: Reason: fall, ams, face injury, jaundice / Spl. Instructions: Comparison: October 02, 2018 Technique: Noncontrast CT imaging was performed of the head, maxillofacial and cervical spine. Coronal and sagittal reconstructions were performed. Exposure: One or more of the following individualized dose reduction techniques were utilized for this examination: 1. Automated exposure control 2. Adjustment of the mA and/or kV according to patient size 3. Use of iterative reconstruction technique. Findings: Head CT: No intracranial hemorrhage. No mass effect. No hydrocephalus. Extra- axial spaces are unremarkable. Frontal scalp soft tissue wound. Maxillofacial CT: Motion degraded evaluation. The entire mandible not included in the image. No definite acute fracture although degraded evaluation especially concerned imaged portions of the mandible. Orbits are unremarkable. Paranasal sinuses and mastoid air cells are clear. No acute calvarial fracture. Cervical spine CT: Motion degraded evaluation. Right upper chest subcutaneous gas. Normal vertebral body alignment. Significantly degraded evaluation of the upper cervical spine and upper thoracic spine due to patient motion. No definite acute fracture. Mild degenerative disc changes. No significant canal narrowing. No definite neur oforaminal narrowing although evaluation is degraded. Soft tissues are unremarkable. Impression: Head CT: 1. No acute intracranial abnormality. Maxillofacial CT: 1. Degraded evaluation due to patient motion. The mandible is not entirely evaluated. No definite fracture. If persistent clinical concern, recommend repeat imaging. Cervical spine CT: 1. Significantly degraded evaluation due to patient motion. No definite fracture. Recommend repeat imaging when patient's condition allows. 1. Significantly degraded evaluation due to patient motion. No definite fracture. Recommend repeat imaging when patient's condition allows.[] Impressions: Indication: Vascular access Consent: Patient altered and emergent need for vascular surgery medications. Procedure: The patient was positioned appropriately and the skin over the right femoral vein was cleaned with chlorhexidine wash and sterile dressing placed over patient. Local anesthesia was lidocaine. A large bore needle was used to identify the vein. A guide wire was then inserted into the vein through the needle. Dilator followed by 7.0 Korean 3 lumen central line was then inserted into the vessel over the guide wire using the Seldinger technique. All ports showed good, free flowing blood return and were flushed with saline solution. The catheter was then securely fastened to the skin with silk suture and covered with a sterile dressing. . The patient tolerated the procedure well. Complications: None Procedural sedation note Indication: To establish central vascular access and altered mental status patient Consent: Patient unable to sign, unable to reach . Physician Involvement: The attending physician was present and supervising this procedure. Pre-Sedation Documentation and Exam: Completed Airway Assessment: Normal Prior History of Anesthesia Complications: No ASA Classification: 2 Sedation/ Anesthesia Plan: IM ketamine Medications Used: [] Monitoring and Safety: The patient was placed on a cardiac exercise physiologist and vital signs, pulse oximetry and level of consciousness were continuously evaluated throughout the procedure. The patient was closely monitored until recovery from the medications was complete and the patient had returned to baseline status. Respiratory therapy was on standby at all times during the procedure. (The following sections must be completed) Post-Sedation Vital Signs: In chart Post-Sedation Exam: Patient had decrease sedation altered mental status Complications: None Total critical care time: 80 The time involved in the performance of separately reportable/billable procedures was not counted toward critical care time. Due to a high probability of clinically significant, life-threatening deterioration the patient required a high level of care to intervene emergently and I personally spent this critical time directly and personally managing the patient. The critical care time included obtaining a history, examination of the patient, assessment of vital signs, ordering and review of studies, arranging urgent treatment with development of a management plan, evaluation of patient's response to treatment, frequent reassessment, and discussions with other providers and/or family members. Heart Score: C/O Chest Pain: N/A Risk Factors: Risk Factors: DM, Current or recent (<one month) smoker, HTN, HLP, family history of CAD, obesity. Risk Scores: Score 0 - 3: 2.5% MACE over next 6 weeks - Discharge Home Score 4 - 6: 20.3% MACE over next 6 weeks - Admit for Clinical Observation Score 7 - 10: 72.7% MACE over next 6 weeks - Early Invasive Strategies Course & Med Decision Making: Course & Med Decision Making Pertinent Labs and Imaging studies reviewed. (See chart for details) [] Accepted to [facility] by Dr. Pete Mcarthur Disclaimer: Lyubov Disclaimer: This electronic medical record was generated, in whole or in part, using a voice recognition dictation system. Departure Departure: Impression: Primary Impression: Renal failure Additional Impressions: Liver failure, acute Hepatic encephalopathy Disposition: 02 SHORT TERM HOSPITAL Condition: GUARDED Referrals: HALLEY STEWART DO, MPH (PCP) ARLEY ISRAEL MD Mar 13, 2021 08:58
[2021-03-13] MEDS ORDERED: IOHEXOL 300 MG/ML 75 ML VIAL. IV ONE (09:00)
--- NOTE | 2021-03-13 09:06 | EKG ---
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
[2021-03-13 10:10] LABS: BASO % 0 % (0-3); EOS % 0 % (0-3); HEMATOCRIT 21.4 % (36.0-47.0); LYMPH # 0.7 x10^3/uL (1.0-4.8); LYMPH % 10 % (24-48); MEAN CORPUSCULAR HEMOGLOBIN 29 pg (25-35); MEAN CORPUSCULAR HGB CONC 30 g/dL (31-37); MEAN CORPUSCULAR VOLUME 99 fL (79-100); MONO # 0.4 x10^3/uL (0.0-1.1); MONO % 5 % (0-9); NEUT # 6.3 x10^3uL (1.8-7.7); NEUT % 84 % (31-73); PLATELET COUNT 237 x10^3/uL (140-400); RED BLOOD COUNT 2.17 x10^6/uL (3.50-5.40); RED CELL DISTRIBUTION WIDTH 21.1 % (11.5-14.5); WHITE BLOOD COUNT 7.5 x10^3/uL (4.0-11.0)
[2021-03-13 10:15] LABS: HEMOGLOBIN 6.4 g/dL (12.0-15.5)
[2021-03-13 10:16] LABS: CREATININE 2.3 mg/dL (0.6-1.0); GFR 23.4
[2021-03-13 10:19] LABS: ACETAMIN < 2.0 mcg/mL (10-30); ETHANOL < 10 mg/dL (0-10)
[2021-03-13 10:29] LABS: ALBUMIN 1.8 g/dL (3.4-5.0); ALBUMIN/GLOBULIN RATIO 0.5 (1.0-1.7); MAGNESIUM 1.6 mg/dL (1.8-2.4); PHOSPHORUS 4.9 mg/dL (2.6-4.7); TOTAL PROTEIN 5.4 g/dL (6.4-8.2)
[2021-03-13 10:30] LABS: POTASSIUM 4.3 mmol/L (3.5-5.1)
[2021-03-13] MEDS ORDERED: PIPERACILLIN/TAZOBACTAM 3.375 GM in IV NORMAL SALINE 50ML 50 ML IV ONE (10:45)
[2021-03-13] MEDS ORDERED: IV NORMAL SALINE 1,000ML 1,000 ML IV ONE (10:45)
[2021-03-13] MEDS ORDERED: PIPERACILLIN/TAZOBACTAM 3.375 GM VIAL IV ONE (10:49)
[2021-03-13] MEDS ORDERED: IV NORMAL SALINE 50ML 50 ML ONE (10:49)
[2021-03-13 11:51] LABS: PLT ESTIMATE ADEQUATE (ADEQUATE)
[2021-03-13 11:52] LABS: ANISOCYTOSIS MOD; HYPOCHROMIA MOD; MICROCYTOSIS MOD
[2021-03-13 11:53] LABS: STOMATOCYTES MOD
[2021-03-13] MEDS ORDERED: KETAMINE HCL 500 MG/10 ML VIAL. IM ONE (12:00)
--- NOTE | 2021-03-13 12:03 | RAD ---
CT HEAD AND MAXILLOFACIAL WO, CT CERVICAL SPINE WO History: Reason: fall, ams, face injury, jaundice / Spl. Instructions: Comparison: October 02, 2018 Technique: Noncontrast CT imaging was performed of the head, maxillofacial and cervical spine. Moreno l and sagittal reconstructions were performed. Exposure: One or more of the following individualized dose reduction techniques were utilized for thi s examination: 1. Automated exposure control 2. Adjustment of the mA and/or kV according to patient size 3. Use of iterative reconstruction technique. Findings: Head CT: No intracranial hemorrhage. No mass effect. No hydrocephalus. Extra-axial spaces are unrema rkable. Frontal scalp soft tissue wound. Maxillofacial CT: Motion degraded evaluation. The entire mandible not included in the image. No definite acute fracture although degraded evaluation especially concerned imaged portions of the m andible. Orbits are unremarkable. Paranasal sinuses and mastoid air cells are clear. No acute calvarial fractu re. Cervical spine CT: Motion degraded evaluation. Right upper chest subcutaneous gas. Normal vertebral body alignment. Significantly degraded evaluation of the upper cervical spine and up per thoracic spine due to patient motion. No definite acute fracture. Mild degenerative disc changes. No significant canal narrowing. No definite neuroforaminal narrowing although evaluation is degraded. Soft tissues are unremarkable. Impression: Head CT: 1. No acute intracranial abnormality. Maxillofacial CT: 1. Degraded evaluation due to patient motion. The mandible is not entirely evaluated. No definite fr acture. If persistent clinical concern, recommend repeat imaging. Cervical spine CT: 1. Significantly degraded evaluation due to patient motion. No definite fracture. Recommend repeat i maging when patient's condition allows. Electronically signed by: Bora Segura DO (03/13/2021 12:01 PM) [id number]
--- NOTE | 2021-03-13 12:05 | RAD ---
PQRS Compliance Statement: One or more of the following individualized dose reduction techniques were utilized for this examinat ion: 1. Automated exposure control 2. Adjustment of the mA and/or kV according to patient size 3. Use of iterative reconstruction technique CT CHEST_ABDOMEN_ AND PELVIS WITHOUT CONTRAST 03/13/2021 10:51 AM INDICATION: Altered mental status, liver failure COMPARISON: CT abdomen/pelvis 06/29/2020 TECHNIQUE: Multiple axial CT images of the chest, abdomen and pelvis were obtained without intravenou s contrast. Coronal and sagittal reformats are provided. FINDINGS: Evaluation degraded by motion artifact. Thyroid gland is normal in appearance. No pathologically enla rged thoracic lymph nodes. Heart size within normal limits. Thoracic aorta is normal in course and ca liber. No pleural effusions, pulmonary vascular congestion or pneumothorax. Lungs are clear. No suspi cious solid noncalcified pulmonary nodules. Severe hepatic steatosis. There is a hydropic gallbladder measuring 6.3 cm in transverse dimension. C holelithiasis. Spleen and adrenal glands are normal in appearance. Mild atrophy of the pancreas. Abdo elijah aorta is normal in course and caliber. No pathologically enlarged lymph nodes are identified in abdomen and pelvis within the limitations of motion artifact. No free fluid or free intraperitoneal air. Gastric bypass post surgical changes. Bowel is partly limited by motion artifact. No bowel obstr uction or inflammation. Limited evaluation of the appendix secondary to motion. Appendix is not defin itively visualized. No pericecal inflammatory changes are identified. Uterus and adnexa are normal by CT. Pradhan catheter decompresses the urinary bladder. No calculi identified within the kidneys, urete rs or urinary bladder. No hydronephrosis. No suspicious osseous abnormality is identified. Chronic ap pearing superior endplate compression deformities identified at L1 with percent height loss and super ior endplate retropulsion. Schmorl's nodes are identified at T11-T12 with mild height loss. Vertebral segmentation anomaly identified at T9-T10 and T5-T6 as well as at the craniocervical junction. Findi ngs are limited evaluation secondary motion. IMPRESSION: Evaluation is degraded by motion artifact. Severe hepatic steatosis. Correlate with hepatic enzymes to assess for steatohepatitis. Gastric bypass post surgical changes are identified without bowel obstruction or inflammation. Cholelithiasis with hydropic gallbladder. Correlate with right upper quadrant ultrasound assess for c holecystitis. 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 If there is persistent clinical concern, dedicated CT thoracic spine with sedation could be of benefit. Electronically signed by: Alta Mcdowell MD (03/13/2021 12:02 PM) [id number]
[2021-03-13 13:53] VITALS: BP 124/76
[2021-03-13 14:30] VITALS: BP 115/49
== END 2021-03-13 15:13 | disposition short-term general hospital (02) ==
LOC: ER 08:50
DX: K72.90 Hepatic failure, unspecified without coma (principal); I12.9 Hypertensive chronic kidney disease with stage 1 through stage 4 chronic kidney disease, or unspecified chronic kidney disease; N18.9 Chronic kidney disease, unspecified; K58.9 Irritable bowel syndrome, unspecified; Z87.442 Personal history of urinary calculi; Z95.1 Presence of aortocoronary bypass graft; F17.210 Nicotine dependence, cigarettes, uncomplicated; F10.20 Alcohol dependence, uncomplicated; Y90.9 Presence of alcohol in blood, level not specified
CPT/HCPCS: 36415; 36430; 36556; 36600; 51702; 70450; 70486; 71250; 72125; 74176; 80053; 80329; 82140; 82248; 82803; 82947; 83690; 83735; 83880; 84100; 84443; 84484; 85025; 85379; 85384; 85610; 86850; 86900; 86901; 86920; 87040; 93005; 96365; 96375; 99152; 99153; 99291; 99292; G0480; J2060; J2543; J7030; P9016